=== PATIENT | male | born 1950 | race Caucasian/White ===

== ENCOUNTER → 2020-02-28 | Outpatient (CLI) | payer MEDICARE, OTHER ==
--- NOTE | 2020-02-28 11:31 | Diagnostic Imaging Report ---
INDICATION: Low back pain extending to the left leg. TIME OF EXAM: 10:51 AM FINDINGS: Curvature of the lumbar spine is normal. There is minimal retrolisthesis L3 on L4 and L4 on L5. Vertebral body heights are maintained. No acute compression fracture is identified. There is slight anterior wedging of the L1 vertebral body. There is degenerative disc disease at all levels with variable disc space narrowing and marginal spurring. There is multilevel facet arthropathy. There are calcifications in the abdominal aorta. IMPRESSION: Significant lumbar spondylosis and listhesis. No acute compression fracture is identified. Dictated by: Dictated on workstation # [id number]
== END ==
LOC: RAD FS 10:36
PROVIDERS: ATTEND Family Medicine
DX: M47.816 Spondylosis without myelopathy or radiculopathy, lumbar region (principal); M43.16 Spondylolisthesis, lumbar region
CPT/HCPCS: 72100

== ENCOUNTER → 2022-04-06 | Outpatient (CLI) | payer MEDICARE, OTHER ==
[~2022-04-06] MED LIST: CATHETER FLUSH 10 ML SYR IV PRN; HOLD METFORMIN - RECEIVED CONTRAST 20 ML VIAL IV SCH; IOHEXOL 350 MG/ML 100 ML (OMNIPAQUE 350) VIAL IV ONE; NS 100 ML (IVPB) BAG IV ONE
[2022-04-06 11:06] LABS: POTASSIUM 4.2 MMOL/L (3.6-5.0)
[2022-04-06 11:07] LABS: CALCIUM 9.6 MG/DL (8.5-10.1); CREATININE SERUM 0.69 MG/DL (0.60-1.30)
--- NOTE | 2022-04-06 19:31 | Diagnostic Imaging Report ---
CLINICAL INDICATIONS: Patient with mass in the left neck. Abnormal ultrasound. Patient has history of smoking. EXAM: Axial CT scan of the neck soft tissue performed with 75 mL of Omnipaque 350 IV contrast. Sagittal and coronal reformatted images are created. Auto Exposure Controls were utilized during the CT exam to meet ALARA standards for radiation dose reduction. COMPARISON: None. FINDINGS: There is a heterogeneous peripherally enhancing soft tissue mass seen in the left level 2 region which measures 3.7 cm x 3.2 cm x 4.9 cm (AP x Trans x CC) . There is central heterogeneous low signal seen involving this lesion and this lesion is multilobulated. This mass is lateral to the carotid space and markedly narrows the left internal jugular vein. There is continued contrast within the left internal jugular vein. This is concerning for a pathologic lymph node. There is fat stranding adjacent to this lymph node. There is no other neck soft tissue mass seen. There is no other lymphadenopathy. Salivary glands are unremarkable. There is prominent lobulated soft tissue involving the base of the tongue which measures grossly 1.4 cm. There is slight medial convex bulging of the left posterior hypopharyngeal wall is noted which may be related to mass effect from the left neck mass. Otherwise, the nasopharynx, hypopharynx, laryngeal soft tissue structures shows no other significant abnormality. There is an 8 mm low-density nodule involving left thyroid lobe. The visualized portions of the oral cavity, tongue, sublingual and submandibular regions are unremarkable. Dentures are noted. Limited visualization of the intracranial structures are unremarkable. Paraseptal emphysematous changes are noted with suspected scarring in the periphery. There are degenerative spurs involving the cervical spine. IMPRESSION: 1: There is a 4.9 cm mass in the left level 2 neck region with central low-density. This is most concerning for a pathologic lymph node. Metastatic lymph node is a concern. An infected lymph node or abscess is suspected to be less likely. 2: There is lobulated masslike prominence involving the posterior tongue base. Direct visualization is suggested. Unknown if this represents a mass or prominent posterior lingual soft tissue. 3: There is no other concern for lymphadenopathy. 4: There is an 8 mm left thyroid nodule. Nonemergent thyroid ultrasound would better evaluate. Dictated by: Dictated on workstation # [id number]
== END ==
LOC: RAD FS 10:14
PROVIDERS: ATTEND Allergy & Immunology
DX: E04.1 Nontoxic single thyroid nodule (principal); Z87.891 Personal history of nicotine dependence
CPT/HCPCS: 36415; 70491; 80048; Q9967

== ENCOUNTER 2022-04-29 05:40 | Outpatient (CLI) | payer MEDICARE ==
[~2022-04-29] VITALS: Ht 177.8 cm; Wt 89.5 kg
[2022-04-29] MEDS ORDERED: MULT-1136 PO (10:58)
[2022-04-29] MEDS ORDERED: TERA5CAP10 PO (10:58)
[2022-04-29] MEDS ORDERED: CHOL20003 PO (10:58)
[2022-04-29] MEDS ORDERED: ROSU20TA32 PO (10:58)
== END 2022-04-29 12:32 | disposition home or self-care (01) ==
LOC: PREOP 05:40
PROVIDERS: ATTEND Otolaryngology Otolaryngology/Facial Plastic Surgery
DX: Z01.818 Encounter for other preprocedural examination (principal)

== ENCOUNTER 2022-05-06 06:08 | Day surgery (SDC) | payer MEDICARE ==
[~2022-05-06] VITALS: Ht 177.8 cm; Wt 89.5 kg
[2022-05-06] VITALS (10 sets, daily range): BP systolic 105–139; BP diastolic 48–84
[~2022-05-06 06:08] MED LIST changes: -CATHETER FLUSH 10 ML SYR IV PRN; +CHOL20003 PO; -HOLD METFORMIN - RECEIVED CONTRAST 20 ML VIAL IV SCH; -IOHEXOL 350 MG/ML 100 ML (OMNIPAQUE 350) VIAL IV ONE; +MULT-1136 PO; -NS 100 ML (IVPB) BAG IV ONE; +ROSU20TA32 PO; +TERA5CAP10 PO
[2022-05-06] MEDS: LACTATED RINGERS 1,000 ML IV PRN ×2 (06:44→08:57)
[2022-05-06 06:54] LABS: BASOPHILS # (AUTO) 0.1 10^3/uL (0.0-0.1); BASOPHILS % (AUTO) 1 % (0-10); EOSINOPHILS # (AUTO) 0.3 10^3/uL (0.0-0.3); EOSINOPHILS % (AUTO) 3 % (0-10); HEMATOCRIT 45 % (40-54); HEMOGLOBIN 14.9 g/dL (13.3-17.7); LYMPHOCYTES # (AUTO) 1.9 10^3/uL (1.0-4.0); LYMPHOCYTES % (AUTO) 21 % (12-44); MEAN CORPUSCULAR HEMOGLOBIN 30 pg (25-34); MEAN CORPUSCULAR HGB CONC 33 g/dL (32-36); MEAN CORPUSCULAR VOLUME 91 fL (80-99); MEAN PLATELET VOLUME 9.4 fL (9.0-12.2); MONOCYTES # (AUTO) 0.8 10^3/uL (0.0-1.0); MONOCYTES % (AUTO) 9 % (0-12); NEUTROPHILS # (AUTO) 5.6 10^3/uL (1.8-7.8); NEUTROPHILS % (AUTO) 65 % (42-75); PLATELET COUNT 296 10^3/uL (130-400); WHITE BLOOD COUNT 8.7 10^3/uL (4.3-11.0)
[2022-05-06 07:12] LABS: POTASSIUM 4.1 MMOL/L (3.6-5.0)
[2022-05-06] MEDS ORDERED: ONDANSETRON 4 MG/2 ML (SDV) Z0FRAN ONE (07:12)
[2022-05-06] MEDS ORDERED: fentaNYL INJ 100 MCG/2 ML AMP ONE (07:12)
[2022-05-06] MEDS ORDERED: MIDAZOLAM 2 MG/2 ML (VERSED) VIAL ONE (07:12)
[2022-05-06] MEDS ORDERED: SEVOFLURANE (ULTANE) 15 ML INHAL SOLN ONE (07:12)
[2022-05-06] MEDS ORDERED: ROCURONIUM 10 MG/ML 5 ML SYRINGE IV ONE (07:12)
[2022-05-06] MEDS ORDERED: proPOfol 200 MG/20 ML (DIPRIVAN) VIAL IV ONE (07:12)
[2022-05-06] MEDS ORDERED: LIDOCAINE PF 2% 5 ML (XYLOCAINE) VIAL ONE (07:12)
[2022-05-06 07:13] LABS: CALCIUM 9.4 MG/DL (8.5-10.1)
--- NOTE | 2022-05-06 07:13 | Progress Note-Pre Operative ---
Pre-Operative Progress Note Date of Available H&P: May 06, 2022 Date H&P Reviewed: May 06, 2022 Time H&P Reviewed: 06:30 History & Physical: H&P Reviewed, Patient Examed, No changes noted Changes from last HP none Pre-Operative Diagnosis: Left Base of Tongue mass with neck mass SHAQ GERARD MD May 06, 2022 07:13
[2022-05-06 07:18] LABS: CREATININE SERUM 0.71 MG/DL (0.60-1.30)
[2022-05-06] MEDS ORDERED: LIDOCAINE/EPI 2% 1:200,00 (XYLOCAINE) 20 ML VIAL ONE (07:34)
--- NOTE | 2022-05-06 08:11 | Progress Note-Post Operative ---
Post-Operative Progess Note Surgeon (s)/Shotgun Shell Assembly Machine Operator (s) Surgeon SHAQ GERARD MD Shotgun Shell Assembly Machine Operator n/a Pre-Operative Diagnosis Left Base of Tongue mass with neck mass Post-Operative Diagnosis same Post-Op Procedure Note Date of Procedure: May 06, 2022 Name of Procedure Performed: Direct Laryngoscopy with Mulktiple Biopsies of Left BAse of Tongue Description & Findings Description and Findings: n/a Anesthesia Type get Estimated Blood Loss minimal Packing none. Specimen(s) collected/removed left base of tongue biopsies to pathology SHAQ GERARD MD May 06, 2022 08:11
[2022-05-06] MEDS ORDERED: PHENYLEPHRINE 100 MCG/ML 10 ML (ANESTHESIA) SYR ONE (08:12)
[2022-05-06] MEDS ORDERED: HYDROcodone/APAP 5 MG/325 MG (LORTAB) TAB PO PRN (08:15)
[2022-05-06] MEDS ORDERED: PROMETHAZINE INJ 25 MG/ML (PHENERGAN) AMP IV PRN (08:15)
[2022-05-06] MEDS ORDERED: GLYCOPYRROLATE 0.2 MG/ML (ROBINUL) 2 ML VIAL ONE (08:41)
[2022-05-06] MEDS ORDERED: NEOSTIGMINE (BLOXIVERZ ) 1 MG/1ML 10 ML VIAL ONE (08:42)
[2022-05-06] MEDS ORDERED: HYDROmorphone 2 MG/ML VIAL (DILAUDID) IV ONE (09:00)
[2022-05-06] MEDS ORDERED: ONDANSETRON 4 MG/2 ML (SDV) Z0FRAN IVP PRN (09:00)
--- NOTE | 2022-05-06 09:41 | Anesthesia-General Post-Op ---
General Patient Condition Mental Status/LOC: Same as Preop Cardiovascular: Satisfactory Nausea/Vomiting: Absent Respiratory: Satisfactory Pain: Controlled Complications: Absent Post Op Complications Complications None Follow Up Care/Instructions Patient Instructions None needed. Anesthesia/Patient Condition Patient Condition Patient is doing well, no complaints, stable vital signs, no apparent adverse anesthesia problems. No complications reported per nursing. D/C home per [facility] Criteria: Yes HARSH MEI CRNA May 06, 2022 09:41
== END 2022-05-06 10:45 ==
LOC: SDC 06:08
PROVIDERS: ATTEND Otolaryngology Otolaryngology/Facial Plastic Surgery
DX: C02.9 Malignant neoplasm of tongue, unspecified (principal); F17.210 Nicotine dependence, cigarettes, uncomplicated
CPT/HCPCS: 36415; 80048; 85025; 87081; 93005

== ENCOUNTER → 2022-05-17 | Outpatient (CLI) | payer MEDICARE ==
--- NOTE | 2022-05-18 14:04 | Diagnostic Imaging Report ---
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 TECHNIQUE: The serum blood glucose level at the time of injection was 133 mg/dL. The patient was administered 14.9 mCi of F-18 FDG intravenously in the right antecubital location and PET imaging was performed from the top of the skull to the mid thighs. A noncontrast CT was also performed for attenuation correction and anatomic correlation. COMPARISON: No prior PET/CT studies are available for comparison. Correlation is made with the recent CT soft tissue neck study from 04/06/2022. FINDINGS: There is symmetric activity throughout the brain. There is a large soft tissue mass in the left neck measuring 4.7 cm corresponding to the previously noted left neck lymph node. This demonstrates an SUV max of approximately 15. This abuts the left posterolateral lung base obscuring the known left base of tongue mass. No other hypermetabolic lymph nodes in the neck are identified. There is low-level activity within an irregular density in the left upper chest adjacent to the major fissure with an SUV max of 2.0. No hypermetabolic mediastinal or hilar lymph nodes are identified. Physiologic activity throughout the GI and tracts of the abdomen and pelvis is noted. No suspicious hypermetabolic foci in the abdomen or pelvis are identified. IMPRESSION: Hypermetabolic left neck mass, consistent with a metastatic cervical lymph node. This is inseparable from the left base of tongue, likely obscuring the known left base of tongue mass. No other suspicious areas of hypermetabolism are identified. Dictated by: Dictated on workstation # [id number]
== END ==
LOC: RAD 10:28
PROVIDERS: ATTEND Nurse Practitioner
DX: C01 Malignant neoplasm of base of tongue (principal); C79.89 Secondary malignant neoplasm of other specified sites
CPT/HCPCS: 78815; A9552

== ENCOUNTER 2022-05-27 07:57 | Outpatient (CLI) | payer MEDICARE ==
[~2022-05-27] VITALS: Ht 177.8 cm; Wt 89.4 kg
[2022-05-27] MEDS ORDERED: ATOR10TA PO (09:31)
[2022-05-27] MEDS ORDERED: NAPR220T66 PO (09:31)
[2022-05-27] MEDS ORDERED: ACHD5005 PO (09:31)
[2022-05-28] MEDS ORDERED: OXYC1TAB11 PO ×2 (11:20→11:22)
== END 2022-05-27 10:04 | disposition home or self-care (01) ==
LOC: PREOP 07:57
PROVIDERS: ATTEND Surgery
DX: Z01.818 Encounter for other preprocedural examination (principal)

== ENCOUNTER 2022-05-28 10:16 | Day surgery (SDC) | payer MEDICARE ==
[~2022-05-28] VITALS: Ht 177.8 cm; Wt 89.4 kg
[2022-05-28] VITALS (7 sets, daily range): BP systolic 114–136; BP diastolic 64–72
[~2022-05-28 10:16] MED LIST changes: +ACHD5005 PO; +ATOR10TA PO; +NAPR220T66 PO
[2022-05-28] MEDS ORDERED: LACTATED RINGERS 1,000 ML IV PRN (11:15)
[2022-05-28] MEDS ORDERED: ceFAZolin INJECTION 2,000 MG in NS (IVPB) 50 ML IV ONE (11:15)
[2022-05-28] MEDS ORDERED: OXYC1TAB11 PO ×2 (11:20→11:22)
--- NOTE | 2022-05-28 11:47 | Progress Note-Pre Operative ---
Pre-Operative Progress Note Date of Available H&P: May 26, 2022 Date H&P Reviewed: May 28, 2022 Time H&P Reviewed: 11:46 History & Physical: H&P Reviewed, Patient Examed, No changes noted Pre-Operative Diagnosis: sqaumous cell carcinoma tongue NEENA COLES DO May 28, 2022 11:47
[2022-05-28] MEDS ORDERED: HEParin (CENTRAL IV FLUSH) 500 UNIT/5 ML SYR ONE (11:55)
[2022-05-28] MEDS ORDERED: 0.9% SODIUM CHLORIDE PF INJ 20 ML VIAL ONE (11:55)
[2022-05-28] MEDS ORDERED: LIDOCAINE/EPI 1%-1:100,000 (XYLOCAINE) 10 ML ONE (11:55)
[2022-05-28] MEDS ORDERED: PROPOFOL INJECTION 50 ML IV ONE (12:09)
[2022-05-28] MEDS ORDERED: fentaNYL INJ 100 MCG/2 ML AMP ONE (12:09)
[2022-05-28] MEDS ORDERED: MIDAZOLAM 2 MG/2 ML (VERSED) VIAL ONE (12:10)
--- NOTE | 2022-05-28 13:08 | Discharge Inst-Simple/Standard ---
Discharge Inst-Standard Patient Instructions/Follow Up Plan of Care/Instructions/FU: 2 weeks Ritchie Activity as Tolerated: No Discharge Diet: Liquid Diet (today and advance diet tomorrow.) Other Inst to Patient Follow up Appt: Make appointment for 2 week. Instructions: No lifting greater than 10 pounds. No strenuous activity. May shower in 24 hours, no tub bath or soaking. Use incentive spirometer at home as directed. No Smoking Skin/Wound Care: You have special glue over your incision that will fall off on it's own. Ice pack on 15 min off 30 min and repeat for first 48 hours. This reduces swelling and discomfort. Starting tomorrow, flush you gastrostomy tube with water daily. Starting this evening, rotate the bolster of the gastrostomy tube (flower appearing part touching the skin) to rotate the pressure to different spot on the skin twice a day. Symptoms to Report: Appetite Changes, Extremity Discoloration, Numbness/Tingling, Swelling Increa sed, Bleeding Excessive, Eyesight Changes, Pain Increased, Urine Color Change, Constipation(Persistent), Fever over 101 degree F, Pain/Pressure in chest, Urinating Difficulty, Cough Up/Vomit Blood, Heart Beat Irreg/Pounding, Pain/Pressure in jaw, Vaginal Bleeding Increase, Cramps in feet or legs, Lightheadedness, Pain/Pressure in shoulder, Diarrhea(Persistent), Memory Changes Suddenly, Questions/Concerns, Weight gain consecutive days, Dizziness/Fainting, Nausea/Vomiting, Shortness of Breath, Weight gain over 2 pounds If questions or concerns contact your physician Or seek help at emergency department. NEENA COLES DO May 28, 2022 13:08
--- NOTE | 2022-05-28 13:09 | Anesthesia-General Post-Op ---
MAC Patient Condition Mental Status/LOC: Same as Preop Cardiovascular: Satisfactory Nausea/Vomiting: Absent Respiratory: Satisfactory Pain: Controlled Complications: Absent Post Op Complications Complications None Follow Up Care/Instructions Patient Instructions None needed. Anesthesiology Discharge Order Discharge Order Patient is doing well, no complaints, stable vital signs, no apparent adverse anesthesia problems. No complications reported per nursing. JASKARAN PATTEN CRNA May 28, 2022 13:09
[2022-05-28] MEDS ORDERED: morphine INJ 10 MG/ML 1ML (SYR OR VIAL) IVP ONE (13:15)
[2022-05-28] MEDS ORDERED: ONDANSETRON 4 MG/2 ML (SDV) Z0FRAN IVP PRN (13:15)
--- NOTE | 2022-05-28 14:05 | Diagnostic Imaging Report ---
Indication: Status post port placement. Time of Exam: 1:23 PM No prior studies are available for comparison. Heart size normal. Right chest wall port has tip overlying the SVC. There is no pneumothorax. The lungs are clear. There is a significant amount of pneumoperitoneum below the hemidiaphragms bilaterally. Reportedly, the patient underwent gastrostomy tube placement today, as well. IMPRESSION: 1. Port placement without evidence of pneumothorax. 2. Pneumoperitoneum, secondary to gastrostomy tube placement. Dictated by: Dictated on workstation # [id number]
--- NOTE | 2022-05-28 16:09 | Diagnostic Imaging Report ---
INDICATION: Fluoroscopic guidance. Port-A-Cath placement. COMPARISON: None. TOTAL FLUOROSCOPY TIME: 18 seconds. TOTAL IMAGES OBTAINED: 1. FINDINGS: Fluoroscopic guidance was provided during placement of Port-A-Cath. Single image provided shows right internal jugular venous approach with central tip projecting over the SVC. Evaluation for pneumothorax is suboptimal given fluoroscopic modality. Please note, interpreting radiologist was not present during the procedure. IMPRESSION: Fluoroscopic guidance provided during Port-A-Cath placement, as above. Dictated by: Dictated on workstation # [id number]
--- NOTE | 2022-05-28 19:03 | OPERATIVE REPORT ---
DATE OF SERVICE: 05/28/2022 PREOPERATIVE DIAGNOSIS: Malnutrition. POSTOPERATIVE DIAGNOSIS: Malnutrition. PROCEDURE PERFORMED: PEG tube placement. SURGEON: Quang Andujar DO RADIOLOGY NURSE: Curly Dugan DO. ANESTHESIA: IV sedation by DATA STORAGE SPECIALIST. SPECIMENS: None. BLOOD LOSS: Scant. FLUIDS: Per anesthesia. INDICATION FOR PROCEDURE: The patient is a 71-year-old male with lung cancer and need for PEG tube placement. FINDINGS: The patient had a PEG tube placed without difficulty. PROCEDURE NOTE: After informed consent was obtained, the patient was brought to the operating room. He already had a port placed. Dr. Dugan started with the EGD. I prepped and draped his abdomen, then able to push on the abdomen, see the light from the inside and could then see where I was pushing from the inside of the stomach, I made a wheal with local lidocaine and made a stab incision with #11 blade and then advanced the needle into the stomach. It went in and then removed the needle and through the catheter, placed the guidewire. Dr. Dugan grasped the guidewire and pulled this out. We then attached the PEG tube. I then pulled the guidewire back and he followed the PEG tube down into the stomach held up tight about 2 cm, then placed the 2 x 2 drain sponge and then the bolster as well as the locking mechanism and then placed the distal portion of the PEG tube onto the catheter, laid in nicely. Area was cleaned and dried, dressing placed. The patient tolerated the procedure. He was then transferred to recovery room in stable condition. Sponge, instrument and needle count correct at the end of the case. Job ID: [id number] DocumentID: [id number] Dictated Date: 05/28/2022 13:01:38 Due Diligence Coordinator Date: 05/28/2022 19:02:12 Dictated By: QUANG ANDUJAR DO [facility]
--- NOTE | 2022-05-28 21:06 | OPERATIVE REPORT ---
DATE OF SERVICE: 05/28/2022 PREOPERATIVE DIAGNOSIS: Squamous cell carcinoma of the tongue. POSTOPERATIVE DIAGNOSIS: Squamous cell carcinoma of the tongue. PROCEDURE: Ultrasound-guided port placement, right internal jugular vein and esophagogastroduodenoscopy for gastrostomy tube placement. SURGEON: Curly Dugan DO ANESTHESIA: MAC with local. MATERIAL HANDLING TECHNICIAN: Dr. Andujar to place a gastrostomy tube. Please see his dictation. ESTIMATED BLOOD LOSS: Minimal. COMPLICATIONS: None. INDICATIONS: The patient is a 71-year-old male with squamous cell carcinoma of the tongue. He understands risks and benefits of procedures and wished to proceed. Consent was signed in the chart. DESCRIPTION OF PROCEDURE: The patient was taken to the operating suite, prepped and draped in sterile fashion. Timeout was performed. Using ultrasound, the right internal jugular vein was accessed with micro access needle. Dark nonpulsatile blood was withdrawn. The micro access wire inserted through the needle and air was removed. Fluoroscopy assured proper placement. The dilator was advanced over the wire after a #11 blade scalpel was used to make a small skin incision at the insertion point. The wire and dilator were removed. The normal guidewire was inserted through the sheath and the sheath was then removed. Fluoroscopy assured proper placement. Pocket was then created on the right chest for port placement. A 15 blade scalpel was used to make a small skin incision after local anesthetic was infiltrated. A pocket was created with blunt and cautery dissection. The dilator sheath was then advanced over the wire and the dilator and wire were removed. The Gro[place] catheter was inserted through the sheath and then the sheath was then removed. The catheter was then tunneled from the insertion point to the pocket created on the right chest. It was then cut to length and secured to the port placed and then accessed without difficulty. It deacon blood and flushed without difficulty, first with saline and then with heparin. The subcutaneous tissues were then reapproximated using 3-0 Vicryl. Fluoroscopy assured proper placement. Skin was then closed with Skin Affix after the area was washed and dried. The patient tolerated the procedure well. Scope was inserted through the mouth, down the esophagus, stomach and into the duodenum without difficulty. No polyps, masses or ulcerations within the duodenum. The first portion of the duodenum did have little bit of erythematous changes. Scope was then slowly retracted back into the stomach where it was further insufflated. After the Angiocath needle was inserted, a snare was used to grasp the catheter. The guidewire was inserted, which was snared and brought out through the mouth, the gastrostomy tube was attached to the guidewire, which was then pulled out and the scope was then reinserted into the mouth, down the esophagus into the stomach demonstrating the gastrostomy tube and inner bolster in good position. Scope was then slowly withdrawn until completely removed noting no other pathology. The patient tolerated the procedure well without any complications, taken to recovery room in stable condition. Chest x-ray pending. Job ID: [id number] DocumentID: [id number] Dictated Date: 05/28/2022 13:18:08 Wheel Lacer And Truer Date: 05/28/2022 21:05:19 Dictated By: DO ELOISA MATTA
== END 2022-05-28 15:03 | disposition home or self-care (01) ==
LOC: SDC 10:16
PROVIDERS: ATTEND Surgery
DX: C02.9 Malignant neoplasm of tongue, unspecified (principal); E46 Unspecified protein-calorie malnutrition; F17.210 Nicotine dependence, cigarettes, uncomplicated
CPT/HCPCS: 36561; 43246; 71045; 76000; 87081; C1788

== ENCOUNTER → 2022-06-14 | Outpatient (RCR) | payer MEDICARE ==
[~2022-06-14] MED LIST changes: +OXYC1TAB11 PO
== END | disposition home or self-care (01) ==
LOC: ONC 05-19 09:55
PROVIDERS: ATTEND Radiology Radiation Oncology
DX: Z51.0 Encounter for antineoplastic radiation therapy (principal); C01 Malignant neoplasm of base of tongue; E78.00 Pure hypercholesterolemia, unspecified
CPT/HCPCS: 77300; 77301; 77334; 77336; 77338; 77386; 77470; 99205

== ENCOUNTER → 2022-07-14 | Outpatient (RCR) | payer MEDICARE | END | disposition home or self-care (01) | LOC: ONC 06-15 10:36 | PROVIDERS: ATTEND Radiology Radiation Oncology | DX: Z51.0 Encounter for antineoplastic radiation therapy (principal); C01 Malignant neoplasm of base of tongue; E78.00 Pure hypercholesterolemia, unspecified | CPT/HCPCS: 77386; G0463; 77336 ==

== ENCOUNTER 2022-07-21 10:33 | Outpatient (RCR) | payer MEDICARE | END 2022-08-14 | disposition home or self-care (01) | LOC: ONC 10:33 | PROVIDERS: ATTEND Radiology Radiation Oncology | DX: Z51.0 Encounter for antineoplastic radiation therapy (principal); C02.9 Malignant neoplasm of tongue, unspecified | CPT/HCPCS: 77336; 77386 ==

== ENCOUNTER 2022-09-02 11:19 | Outpatient (RCR) | payer MEDICARE | END 2022-09-14 | disposition home or self-care (01) | LOC: ONC 11:19 | PROVIDERS: ATTEND Radiology Radiation Oncology | DX: C02.9 Malignant neoplasm of tongue, unspecified (principal) | CPT/HCPCS: 99213 ==

== ENCOUNTER 2022-11-09 16:31 | Emergency (ER) | payer MEDICARE ==
--- NOTE | 2022-11-09 16:45 | ED Fall/Injury ---
General Chief Complaint: Trauma-Non Activation Stated Complaint: FELL CRACKED HEAD Source: patient, family (son) Exam Limitations: no limitations History of Present Illness Date Seen by Provider: Nov 09, 2022 Time Seen by Provider: 16:35 Initial Comments 72-year-old male presents to the emergency department today for a closed head injury. He fell last night as he had the urge to use the restroom, got up and tripped in the hallway. He states he simply tripped on his slippers. He fell hitting his head on the wooden floor. He denies loss of conscious. No nausea or vomiting. He was fine throughout the day today has been ambulatory without any weakness of his upper or lower extremities bilaterally. No blurred or double vision. His son came over and saw the goose egg on his head and decided he needed to get checked out. He is not on any blood thinning medications. All other systems reviewed and negative except documented per HPI. Voice recognition software was used to help create this chart Allergies and Home Medications Allergies Coded Allergies: No Known Drug Allergies (Unverified , 05/27/22) Patient Home Medication List Home Medication List Reviewed: Yes Atorvastatin Calcium (Lipitor) 10 Mg Tablet, 10 MG PO HS, (Reported) Entered as Reported by: MARBELLA MAY on 05/27/22 09 Cholecalciferol (Vitamin D3) (Vitamin D3) 50 Mcg (2000 Unit) Capsule, 50 MCG PO DAILY, (Reported) Entered as Reported by: JOSÉ LUIS BOLTON on 04/29/22 105 Multivitamin (Multivitamin) 1 Each Tablet, 1 EACH PO DAILY, (Reported) Entered as Reported by: JOSÉ LUIS BOLTON on 04/29/22 1058 Naproxen Sodium (Aleve) 220 Mg Tablet, 220 MG PO UD, (Reported) Entered as Reported by: MARBELLA MAY on 05/27/22 0931 Oxycodone HCl/Acetaminophen (Oxycodone-Acetaminophen 5-325) 5 Mg-325 Mg Tablet, 1 EACH PO Q4H PRN for PAIN-SEVERE, (Reported) Entered as Reported by: Stephanie Adams on 05/28/22 1122 Terazosin HCl (Terazosin HCl) 5 Mg Capsule, 5 MG PO DAILY, (Reported) Entered as Reported by: JOSÉ LUIS BOLTON on 04/29/22 1058 Review of Systems Review of Systems Constitutional: see HPI Past Bjogsmc-Qhbprn-Syzcas Hx Patient Social History Tobacco Use?: No Use of E-Cig and/or Vaping dev: No Substance use?: No Immunizations Up To Date First/Initial COVID19 Vaccinat: 03/07/2021 Second COVID19 Vaccination Raul: 03/28/2021 Third COVID19 Vaccination Date: 03/07/2021 Seasonal Allergies Seasonal Allergies: No Past Medical History Surgeries: Yes (BACK X2; BILAT SHOULDERS ROTATOR REPARI) Orthopedic, Tonsillectomy Respiratory: No Currently Using CPAP: No Currently Using BIPAP: No Cardiac: Yes High Cholesterol Neurological: No Reproductive Disorders: No Genitourinary: Yes Benign Prostatic Hyperpl Gastrointestinal: No Musculoskeletal: Yes Arthritis Endocrine: No HEENT: Yes (TONGUE CANCER SCC) Cancer: Yes (TONGUE) What Type of Treatment Did You: Surgical Intervention Psychosocial: Yes Sleep Difficulties Integumentary: No Blood Disorders: No Family Medical History Reviewed Nursing Family Hx No Pertinent Family Hx Physical Exam Vital Signs Capillary Refill : Height, Weight, BMI Height: '" Weight: lbs. oz. kg; 28.27 BMI Method: General Appearance: WD/WN, no apparent distress, other (Patient has a cephalhematoma left anterior forehead with an overlying scab.) HEENT: PERRL/EOMI, normal ENT inspection, TMs normal, pharynx normal, other (No pain with extraocular movements. No evidence for entrapment. No hemotympanum bilaterally.) Neck: non-tender, supple, normal inspection Cardiovascular: regular rate, rhythm, no murmur Respiratory: chest non-tender, lungs clear, normal breath sounds, no respiratory distress, no accessory muscle use Gastrointestinal: normal bowel sounds, non tender, soft, no organomegaly Back: normal inspection, no vertebral tenderness Extremities: normal range of motion, normal inspection, no pedal edema, no calf tenderness, normal capillary refill Neurologic/Psychiatric: fur mixer II-XII nml as tested, no motor/sensory deficits, alert, normal mood/affect, oriented x 3 Skin: normal color, warm/dry, other (Abrasion left anterior forehead as documented elsewhere) Departure Communication (Admissions) Patient is hemodynamically stable with a GCS of 15. No focal exam findings. No evidence for entrapment of his eyes on exam. No evidence for intracranial injury. He does meet any criteria for CT scanning and the incident happened overnight, he has been well ambulatory with a GCS of 15 all day. No indication for imaging at this time. He is on blood thinners. He is discharged home in stable condition with supportive care. Impression Primary Impression: Fall Qualified Codes: W19.XXXA - Unspecified fall, initial encounter Additional Impression: Cephalohematoma Disposition: HOME, SELF-CARE Condition: Stable Departure-Patient Inst. Referrals: SELF,KO BRADLEY (PCP/Family) Primary Care Physician Patient Instructions: Minor Head Injury (DC) Add. Discharge Instructions: Use ibuprofen and Tylenol as needed for pain. Return to the emergency department for any vision changes, weakness in your legs or arms or if your symptoms change in any way concerning to you. Follow-up with your primary doctor for any nonemergent needs All discharge instructions reviewed with patient and/or family. Voiced understanding. SALIMA ALEGRIA DO Nov 09, 2022 16:45
[2022-11-09 16:49] VITALS: BP 122/67
== END 2022-11-09 16:49 | disposition home or self-care (01) ==
LOC: EDUNIT# 16:31 → ER FS 16:33
DX: S00.83XA Contusion of other part of head, initial encounter (principal); W01.198A Fall on same level from slipping, tripping and stumbling with subsequent striking against other object, initial encounter
CPT/HCPCS: 99282

== ENCOUNTER 2022-12-05 15:47 | Observation (INO) | payer MEDICARE ==
[~2022-12-05] VITALS: Ht 177 cm; Wt 80.2 kg
--- NOTE | 2022-12-05 16:01 | ED Fall/Injury ---
General Chief Complaint: General Problems/Pain Stated Complaint: FALL History of Present Illness Date Seen by Provider: Dec 05, 2022 Time Seen by Provider: 15:52 Initial Comments 71-year-old male with PMH of tongue cancer/active smoker, is here with co mplaints of recurrent falls. Patient had 3 falls this past week, with the last one being today at 2 AM in the morning when he was going to the bathroom. Patient states that he loses his balance and just falls. Patient has resulting right hip pain and right elbow pain with a minor skin tear. Patient states that he was not dizzy at the time of the fall, and did not have LOC. Denies chest pain, palpitations, shortness of breath, blurry vision, hearing disturbances, headaches, neck pain, LOC, vertigo. Patient is on a feeding tube. Patient is a poor historian. Allergies and Home Medications Allergies Coded Allergies: No Known Drug Allergies (Unverified , 05/27/22) Patient Home Medication List Home Medication List Reviewed: Yes Atorvastatin Calcium (Lipitor) 10 Mg Tablet, 10 MG PO HS, (Reported) Entered as Reported by: MARBELLA MAY on 05/27/22930 Cholecalciferol (Vitamin D3) (Vitamin D3) 50 Mcg (2000 Unit) Capsule, 50 MCG PO DAILY, (Reported) Entered as Reported by: JOSÉ LUIS BOLTON on 04/29/22 105 Multivitamin (Multivitamin) 1 Each Tablet, 1 EACH PO DAILY, (Reported) Entered as Reported by: JOSÉ LUIS BOLTON on 04/29/22 105 Naproxen Sodium (Aleve) 220 Mg Tablet, 220 MG PO UD, (Reported) Entered as Reported by: MARBELLA MAY on 05/27/22930 Oxycodone HCl/Acetaminophen (Oxycodone-Acetaminophen 5-325) 5 Mg-325 Mg Tablet, 1 EACH PO Q4H PRN for PAIN-SEVERE, (Reported) Entered as Reported by: Stephanie Adams on 05/28/22 1122 Terazosin HCl (Terazosin HCl) 5 Mg Capsule, 5 MG PO DAILY, (Reported) Entered as Reported by: JOSÉ LUIS BOLTON on 04/29/22 1058 Review of Systems Review of Systems Constitutional: no symptoms reported Eyes: No Symptoms Reported Ears, Nose, Mouth, Throat: no symptoms reported Respiratory: no symptoms reported Cardiovascular: no symptoms reported Gastrointestinal: no symptoms reported Genitourinary: no symptoms reported Musculoskeletal: see HPI, joint pain, muscle pain Skin: see HPI Psychiatric/Neurological: See HPI, Other (Falls) Past Pxwcqpv-Pseorx-Whgygd Hx Patient Social History Tobacco Use?: Yes Tobacco type used: Cigarettes Smoking Status: Current Everyday Smoker Use of E-Cig and/or Vaping dev: No Substance use?: No Alcohol Use?: No Pt feels they are or have been: Unable to obtain Immunizations Up To Date First/Initial COVID19 Vaccinat: 03/07/2021 Second COVID19 Vaccination Raul: 03/28/2021 Third COVID19 Vaccination Date: 03/07/2021 Seasonal Allergies Seasonal Allergies: No Past Medical History Surgery/Hospitalization HX: Oral cancer; 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 Surgeries: Yes (BACK X2; BILAT SHOULDERS ROTATOR REPARI) Orthopedic, Tonsillectomy Respiratory: No Currently Using CPAP: No Currently Using BIPAP: No Cardiac: Yes High Cholesterol Neurological: No Reproductive Disorders: No Genitourinary: Yes Benign Prostatic Hyperpl Gastrointestinal: No Musculoskeletal: Yes Arthritis Endocrine: No HEENT: Yes (TONGUE CANCER SCC) Cancer: Yes (TONGUE) What Type of Treatment Did You: Surgical Intervention Psychosocial: Yes Sleep Difficulties Integumentary: No Blood Disorders: No Family Medical History No Pertinent Family Hx Physical Exam Vital Signs Vital Signs - First Documented 12/05/22 15:59 Temp 36.1 Pulse 99 Resp 16 B/P (MAP) 114/57 (76) Pulse Ox 97 O2 Delivery Room Air Capillary Refill : Height, Weight, BMI Height: '" Weight: lbs. oz. kg; 28.27 BMI Method: General Appearance: WD/WN, no apparent distress HEENT: PERRL/EOMI, normal ENT inspection Neck: non-tender, full range of motion, supple, normal inspection Cardiovascular: regular rate, rhythm, no edema Respiratory: chest non-tender, lungs clear, normal breath sounds Gastrointestinal: normal bowel sounds, non tender, soft Back: normal inspection, no CVA tenderness Extremities: normal range of motion, pelvis stable, swelling (Of right elbow, mild. Redness over the elbow not warm to touch. ROM unrestricted. Superficial skin tear at elbow, 2 cm long no active bleeding, already starting to scab.), other (Right hip: Mild tenderness to touch, no bruising, ROM unrestricted. Patient has some difficulty in ambulation due to pain.) Neurologic/Psychiatric: second miller II-XII nml as tested, no motor/sensory deficits, alert, normal mood/affect, oriented x 3 Skin: normal color, other (Healing skin tear on the right forearm on the extensor surface, which is completely scabbed over. Residual from an old fall.) Antonio Coma Score Best Eye Response: (4) Open Spontaneously Best Verbal Response: (5) Oriented Best Motor Response: (6) Obeys Commands Antonio Total: 15 Progress/Results/Core Measures Results/Orders Lab Results Laboratory Tests Test 12/05/22 16:10 12/05/22 18:00 Range/Units White Blood Count 12.4 H 4.3-11.0 10^3/uL Red Blood Count 4.56 4.30-5.52 10^6/uL Hemoglobin 14.5 13.3-17.7 g/dL Hematocrit 42 40-54 % Mean Corpuscular Volume 92 80-99 fL Mean Corpuscular Hemoglobin 32 25-34 pg Mean Corpuscular Hemoglobin Concent 35 32-36 g/dL Red Cell Distribution Width 12.9 10.0-14.5 % Platelet Count 209 130-400 10^3/uL Mean Platelet Volume 9.4 9.0-12.2 fL Immature Granulocyte % (Auto) 1 % Neutrophils (%) (Auto) 89 H 42-75 % Lymphocytes (%) (Auto) 3 L 12-44 % Monocytes (%) (Auto) 7 0-12 % Eosinophils (%) (Auto) 0 0-10 % Basophils (%) (Auto) 0 0-10 % Neutrophils # (Auto) 11.0 H 1.8-7.8 10^3/uL Lymphocytes # (Auto) 0.3 L 1.0-4.0 10^3/uL Monocytes # (Auto) 0.9 0.0-1.0 10^3/uL Eosinophils # (Auto) 0.0 0.0-0.3 10^3/uL Basophils # (Auto) 0.0 0.0-0.1 10^3/uL Immature Granulocyte # (Auto) 0.2 H 0.0-0.1 10^3/uL Neutrophils % (Manual) 94 % Lymphocytes % (Manual) 2 % Monocytes % (Manual) 4 % Urine Color DARK YELLOW Urine Clarity CLEAR Urine pH 7.0 5-9 Urine Specific [place] 1.020 1.016-1.022 Urine Protein TRACE H NEGATIVE Urine Glucose (UA) NEGATIVE NEGATIVE Urine Ketones 2+ H NEGATIVE Urine Nitrite NEGATIVE NEGATIVE Urine Bilirubin NEGATIVE NEGATIVE Urine Urobilinogen 1.0 < = 1.0 MG/DL Urine Leukocyte Esterase NEGATIVE NEGATIVE Urine RBC (Auto) 3+ H NEGATIVE Urine RBC >100 H /HPF Urine WBC 5-10 H /HPF Urine Squamous Epithelial Cells 5-10 /HPF Urine Crystals NONE /LPF Urine Bacteria FEW H /HPF Urine Casts PRESENT /LPF Urine Granular Casts 2-5 H /LPF Urine Mucus LARGE H /LPF Urine Culture Indicated YES Sodium Level 123 *L 124 *L 135-145 MMOL/L Potassium Level 4.1 3.6-5.0 MMOL/L Chloride Level 86 L 98-107 MMOL/L Carbon Dioxide Level 23 21-32 MMOL/L Anion Gap 14 5-14 MMOL/L Blood Urea Nitrogen 18 7-18 MG/DL Creatinine 0.41 L 0.60-1.30 MG/DL Estimat Glomerular Filtration Rate 114 BUN/Creatinine Ratio 44 Glucose Level 109 H 70-105 MG/DL Calcium Level 9.3 8.5-10.1 MG/DL Corrected Calcium 9.5 8.5-10.1 MG/DL Magnesium Level 1.8 1.6-2.4 MG/DL Total Bilirubin 1.1 H 0.1-1.0 MG/DL Aspartate Amino Transf (AST/SGOT) 69 H 5-34 U/L Alanine Aminotransferase (ALT/SGPT) 24 0-55 U/L Alkaline Phosphatase 82 40-136 U/L Troponin I < 0.30 <0.30 NG/ML Total Protein 6.4 6.4-8.2 GM/DL Albumin 3.8 3.2-4.5 GM/DL My Orders Orders - JULES TAI MD Hip 2-3 View Right (12/05/22 16:01) Elbow 3 View Right (12/05/22 16:01) Ct Head Wo (12/05/22 16:02) Cbc With Automated Diff (12/05/22 16:02) Comprehensive Metabolic Panel (12/05/22 16:02) Magnesium (12/05/22 16:02) Ua Culture If Indicated (12/05/22 16:02) Troponin I Fs (12/05/22 16:02) Ekg Tracing (12/05/22 16:03) Manual Differential (12/05/22 16:10) Urine Culture (12/05/22 16:10) Ed Iv/Invasive Line Start (12/05/22 17:01) Ns Iv 1000 Ml (Sodium Chloride 0.9%) (12/05/22 17:15) Acetaminophen Tablet (Tylenol Tablet) (12/05/22 17:45) Sodium (12/05/22 17:55) Medications Given in ED Current Medications Medications Dose Ordered Sig/Manju Route Start Time Stop Time Status Last Admin Dose Admin Acetaminophen 1,000 mg ONCE ONCE PO 12/05/22 17:45 12/05/22 17:46 UNV 12/05/22 17:52 1,000 MG Vital Signs/I&O 12/05/22 15:59 Temp 36.1 Pulse 99 Resp 16 B/P (MAP) 114/57 (76) Pulse Ox 97 O2 Delivery Room Air Progress Progress Note : Progress Note 1. RECURRENT FALLS/ HYPONATREMI/ DEHYDRATION : - CT HEAD: no acute findings - XR RIGHT ELBOW/ RIGHT HIP: severe osteoarthritis of hip, and posterior subcutaneous edema of elbow - EKG:non-ischemic - Troponin: undetected - UA: positive ketones. No signs of infection - CBC: WBC is 12, but afebrile with normal vitals - CMP: s. Na is 123 - NS IVF bolus STAT - Tylenol 1000mg STAT -Discussed with hospitalist and will admit to observation for hypertension treatment and work-up, and medication re-assessment -Patient's oncologist is Dr. Cevallos and he has an appointment with him scheduled for Tuesday morning currently. Patient's PCP is Dr. LEUNG. Pt's ENT is Dr Huang. Diagnostic Imaging Diagonstic Imaging: Xray, CT Plain Films/CT/US/NM/MRI: elbow, hip, head Comments [facility], [place] NAME: CHIARA REYNA Jose Carlos FAITH REC#: [id number] PT STATUS: REG ER : 1950 PHYSICIAN: JULES TAI MD ADMIT DATE: 12/05/22/ER FS Signed Date of Exam:12/05/22 ELBOW 3 VIEW RIGHT INDICATION: Multiple recent falls over the past two weeks. Skin tear of left forearm. Pain. TECHNIQUE: 3 views of the right elbow. CORRELATION STUDY: None. FINDINGS: Small bone fragments adjacent to the lateral epicondyle and radial head may reflect a more remote injury. An acute fracture or dislocation does not appear to be present. No abnormal joint effusion; however, there is some soft tissue edema at the olecranon. No soft tissue foreign body. IMPRESSION: Negative for acute bony abnormality of the elbow. Posterior edema. Dictated by: Dictated on workstation # [id number] Dict: 12/05/22 163 Trans: 12/05/221699 PJE [id number] Interpreted by: MARY RESENDEZ DO Electronically signed by: MRAY RESENDEZ DO 12/05/221699 [facility], [place] NAME: [facility] REC#: [id number] PT STATUS: REG ER : 1950 PHYSICIAN: JULES TAI MD ADMIT DATE: 12/05/22/ER FS Signed Date of Exam:12/05/22 HIP 2-3 VIEW RIGHT INDICATION: Pain post fall. TECHNIQUE: Two views of the right hip. CORRELATION STUDY: None. FINDINGS: No acute fracture or dislocation. There is advanced osteoarthritic change with significant joint space narrowing. Overhanging osteophyte formation at the acetabular roof. Pubic rami intact with pubic symphysis and SI joint unremarkable. Mild vascular calcification. IMPRESSION: Negative for acute bony abnormality of the right hip. Advanced osteoarthritic degenerative change. Dictated by: Dictated on workstation # [id number] Dict: 12/05/22 163 Trans: 12/05/221700 PJE [id number] Interpreted by: MARY RESENDEZ DO Electronically signed by: MARY RESENDEZ DO 12/05/221700 [facility] [place] [facility] REC[facility] [id number] PT STATUS: REG ER : 1950 PHYSICIAN: JULES TAI MD ADMIT DATE: 12/05/22/ER FS Signed Date of Exam:12/05/22 CT HEAD WO Clinical indication: Patient with several falls at home in the past 2 weeks. Exam: Axial CT scan of the brain without IV contrast with coronal and sagittal reformatted images. Auto Exposure Controls were utilized during the CT exam to meet ALARA standards for radiation dose reduction. Comparison: None. Findings: There is skull streak artifact which obscures portions of the brainstem, posterior fossa and portions of the brain near the skull. There is no evidence of acute cerebral infarct, intracranial hemorrhage or gross mass effect. The brain parenchymal volume appears appropriate for patient's age. There is normal palomo-white matter distinction. There is no significant midline shift or herniation. There is no evidence of hydrocephalus. The basal cisterns are unremarkable. The skull, extracranial soft tissue and orbits are unremarkable. There is minimal ethmoid sinus mucosal thickening. There is a small amount of consolidation involving the left mastoid air cells. Impression: There is no CT evidence of acute intracranial process. There is no skull fracture. Dictated by: Dictated on workstation # [id number] Dict: 12/05/22 1636 Trans: 12/05/221708 [facility] [id number] Interpreted by: GI DRAPER MD Electronically signed by: GI DRAPER MD 12/05/229 Departure Communication (Admissions) Time/Spoke to Admitting Phy: 18:[address] Elise, hospitalist, and will admit to observation Impression Primary Impression: Hyponatremia Additional Impressions: Dehydration Recurrent falls Disposition: 30 STILL A PATIENT Condition: Stable Admissions Decision to Admit Reason: Admit from ER (General) Decision to Admit/Date: Dec 05, 2022 Time/Decision to Admit Time: 18:00 Transfer Method of Transfer: EMS Departure-Patient Inst. Referrals: XOCHITL,KO BRADLEY (PCP/Family) Primary Care Physician JULES TAI MD Dec 05, 2022 16:01
[2022-12-05 16:37] LABS: BASOPHILS % (AUTO) 0 % (0-10); EOSINOPHILS % (AUTO) 0 % (0-10); HEMATOCRIT 42 % (40-54); HEMOGLOBIN 14.5 g/dL (13.3-17.7); LYMPHOCYTES # (AUTO) 0.3 10^3/uL (1.0-4.0); LYMPHOCYTES % (AUTO) 3 % (12-44); MEAN CORPUSCULAR HEMOGLOBIN 32 pg (25-34); MEAN CORPUSCULAR HGB CONC 35 g/dL (32-36); MEAN CORPUSCULAR VOLUME 92 fL (80-99); MEAN PLATELET VOLUME 9.4 fL (9.0-12.2); MONOCYTES # (AUTO) 0.9 10^3/uL (0.0-1.0); MONOCYTES % (AUTO) 7 % (0-12); NEUTROPHILS % (AUTO) 89 % (42-75); PLATELET COUNT 209 10^3/uL (130-400); WHITE BLOOD COUNT 12.4 10^3/uL (4.3-11.0)
--- NOTE | 2022-12-05 16:41 | Diagnostic Imaging Report ---
INDICATION: Multiple recent falls over the past two weeks. Skin tear of left forearm. Pain. TECHNIQUE: 3 views of the right elbow. CORRELATION STUDY: None. FINDINGS: Small bone fragments adjacent to the lateral epicondyle and radial head may reflect a more remote injury. An acute fracture or dislocation does not appear to be present. No abnormal joint effusion; however, there is some soft tissue edema at the olecranon. No soft tissue foreign body. IMPRESSION: Negative for acute bony abnormality of the elbow. Posterior edema. Dictated by: Dictated on workstation # [id number]
[2022-12-05 16:43] LABS: BILIRUBIN,URINE NEGATIVE (NEGATIVE); CLARITY,URINE CLEAR; GLUCOSE, URINE (UA) NEGATIVE (NEGATIVE); KETONES,URINE 2+ (NEGATIVE); LEUKOCYTE ESTERASE ,URINE NEGATIVE (NEGATIVE); NITRITE,URINE NEGATIVE (NEGATIVE); PROTEIN,URINE TRACE (NEGATIVE)
--- NOTE | 2022-12-05 16:46 | Diagnostic Imaging Report ---
INDICATION: Pain post fall. TECHNIQUE: Two views of the right hip. CORRELATION STUDY: None. FINDINGS: No acute fracture or dislocation. There is advanced osteoarthritic change with significant joint space narrowing. Overhanging osteophyte formation at the acetabular roof. Pubic rami intact with pubic symphysis and SI joint unremarkable. Mild vascular calcification. IMPRESSION: Negative for acute bony abnormality of the right hip. Advanced osteoarthritic degenerative change. Dictated by: Dictated on workstation # [id number]
[2022-12-05 16:47] LABS: BACTERIA,URINE FEW /HPF; COLOR,URINE DARK YELLOW; RBC,URINE >100 /HPF
--- NOTE | 2022-12-05 16:48 | Diagnostic Imaging Report ---
Clinical indication: Patient with several falls at home in the past 2 weeks. Exam: Axial CT scan of the brain without IV contrast with coronal and sagittal reformatted images. Auto Exposure Controls were utilized during the CT exam to meet ALARA standards for radiation dose reduction. Comparison: None. Findings: There is skull streak artifact which obscures portions of the brainstem, posterior fossa and portions of the brain near the skull. There is no evidence of acute cerebral infarct, intracranial hemorrhage or gross mass effect. The brain parenchymal volume appears appropriate for patient's age. There is normal palomo-white matter distinction. There is no significant midline shift or herniation. There is no evidence of hydrocephalus. The basal cisterns are unremarkable. The skull, extracranial soft tissue and orbits are unremarkable. There is minimal ethmoid sinus mucosal thickening. There is a small amount of consolidation involving the left mastoid air cells. Impression: There is no CT evidence of acute intracranial process. There is no skull fracture. Dictated by: Dictated on workstation # [id number]
[2022-12-05 16:50] LABS: ALANINE AMINOTRANSFERASE 24 U/L (0-55); ALBUMIN 3.8 GM/DL (3.2-4.5); ALKALINE PHOSPHATASE 82 U/L (40-136); BILIRUBIN,TOTAL 1.1 MG/DL (0.1-1.0); BUN/CREATININE RATIO 44; CALCIUM 9.3 MG/DL (8.5-10.1); CARBON DIOXIDE 23 MMOL/L (21-32); CHLORIDE 86 MMOL/L (98-107); CREATININE SERUM 0.41 MG/DL (0.60-1.30); GFR ESTIMATED 114; GLUCOSE 109 MG/DL (70-105); MAGNESIUM 1.8 MG/DL (1.6-2.4); POTASSIUM 4.1 MMOL/L (3.6-5.0); TOTAL PROTEIN 6.4 GM/DL (6.4-8.2)
[2022-12-05 16:51] LABS: SODIUM 123 MMOL/L (135-145)
[2022-12-05 16:54] LABS: LYMPHOCYTES % (MANUAL) 2 %; MONOCYTES % (MANUAL) 4 %; NEUTROPHILS % (MANUAL) 94 %
[2022-12-05] MEDS ORDERED: NS IV 1000 ML 1,000 ML IV SCH (17:15)
[2022-12-05] MEDS ORDERED: ACETAMINOPHEN 500 MG TAB (TYLENOL) PO ONE (17:45)
[2022-12-05] MEDS ORDERED: ACETAMINOPHEN 325 MG TABLET PO PRN (19:45)
[2022-12-05] MEDS ORDERED: LORazepam 0.5 MG (ATIVAN) TABLET PO PRN (19:45)
[2022-12-05] MEDS ORDERED: MELATONIN 3 MG TABLET PO PRN (19:45)
[2022-12-05] MEDS ORDERED: NALOXONE 0.4 MG/ML 1 ML (NARCAN) VIAL IV PRN (19:45)
[2022-12-05] MEDS ORDERED: polyethylene glycoL POWDER 17 GM (MIRALAX) PACK PO PRN (19:45)
[2022-12-05] MEDS ORDERED: ANTACID SUSP 30 ML UDC (MYLANTA) PO PRN (19:45)
[2022-12-05] MEDS ORDERED: BISACODYL 10 MG SUPP (DULCOLAX) PR PRN (19:45)
[2022-12-05] MEDS ORDERED: diphenhydrAMINE 50 MG/ML INJ (BENADRYL) IVP PRN (19:45)
[2022-12-05] MEDS ORDERED: LORazepam INJ 2 MG/ML (ATIVAN) VIAL IVP PRN (19:45)
[2022-12-05] MEDS ORDERED: ONDANSETRON 4 MG/2 ML (SDV) Z0FRAN IV PRN (19:45)
[2022-12-05] MEDS ORDERED: diphenhydrAMINE 25 MG TAB (BENADRYL) PO PRN (19:45)
[2022-12-05] MEDS ORDERED: ONDANSETRON 4 MG (ZOFRAN) ORAL DISSOLVE TAB PO PRN (19:45)
[2022-12-05 19:50] VITALS: BP 120/66
[2022-12-05] MEDS: NS IV 1000 ML 1,000 ML IV SCH (19:56)
[2022-12-05] MEDS: DOCUSATE SODIUM 100 MG (COLACE) CAP PO SCH (20:51)
[2022-12-05] MEDS ORDERED: ENOXAPARIN 40 MG/0.4 ML (LOVENOX) SYR SC SCH (21:00)
[2022-12-05] MEDS ORDERED: HYDR2TAB30 PO (21:16)
[2022-12-05 21:53] VITALS: BP 120/86
[2022-12-05] MEDS ORDERED: RT-ALBUTEROL/IPRATROPIUM 3 ML (DUONEB) VIAL INH PRN (22:00)
[2022-12-06] VITALS (8 sets, daily range): BP systolic 108–149; BP diastolic 52–66
[2022-12-06 05:13] LABS: BASOPHILS % (AUTO) 0 % (0-10); EOSINOPHILS # (AUTO) 0.1 10^3/uL (0.0-0.3); EOSINOPHILS % (AUTO) 1 % (0-10); HEMATOCRIT 35 % (40-54); HEMOGLOBIN 12.1 g/dL (13.3-17.7); LYMPHOCYTES # (AUTO) 0.4 10^3/uL (1.0-4.0); LYMPHOCYTES % (AUTO) 5 % (12-44); MEAN CORPUSCULAR HEMOGLOBIN 32 pg (25-34); MEAN CORPUSCULAR HGB CONC 35 g/dL (32-36); MEAN CORPUSCULAR VOLUME 92 fL (80-99); MEAN PLATELET VOLUME 9.5 fL (9.0-12.2); MONOCYTES # (AUTO) 0.6 10^3/uL (0.0-1.0); MONOCYTES % (AUTO) 8 % (0-12); NEUTROPHILS # (AUTO) 6.3 10^3/uL (1.8-7.8); NEUTROPHILS % (AUTO) 85 % (42-75); PLATELET COUNT 182 10^3/uL (130-400); WHITE BLOOD COUNT 7.4 10^3/uL (4.3-11.0)
[2022-12-06 05:25] LABS: ALBUMIN 2.9 GM/DL (3.2-4.5)
[2022-12-06 05:26] LABS: POTASSIUM 3.6 MMOL/L (3.6-5.0)
[2022-12-06 05:27] LABS: CALCIUM 8.2 MG/DL (8.5-10.1)
[2022-12-06 05:30] LABS: BILIRUBIN,TOTAL 0.9 MG/DL (0.1-1.0)
[2022-12-06 05:32] LABS: CREATININE SERUM 0.48 MG/DL (0.60-1.30)
[2022-12-06] MEDS: NS IV 1000 ML 1,000 ML IV SCH ×2 (05:40→16:40)
[2022-12-06] MEDS: DOCUSATE SODIUM 100 MG (COLACE) CAP PO SCH ×2 (08:20→21:13)
--- NOTE | 2022-12-06 11:58 | History & Physical ---
HPI History of Present Illness: When son, John went to his house last night to visit and check on him, he had fallen and had been down for a bit and didn't have his phone on him, went to ER and had xrays and things. He has been having trouble with weakness and falls for a couple of weeks. He has a history of cancer at back of tongue and sees Dr. Rollins, he has been having trouble with pain going up the side of his face and he was started on a pain med that they hadn't heard of before which finally seemed to be the only thing that helped, started around two weeks ago. He had biopsy last week of the area where he is having chronic pain and was to follow up on those results this morning. Denies fever. Has been drinking water, but not able to eat and drink much in general. Is getting 5 bottles per day of protein formula through tube, has been since last April. He states food tastes bad and he doesn't make saliva which leads to poor intake, but he thinks it has been about the same since April when he had his tube placed. Source: patient Date seen by provider: Dec 06, 2022 Time Seen by Provider: 11:58 Attending Physician Navid Ryan MD PCP Admitting Physician: Dyan Elise DO Attending Physician: Letty Meza MD Consult Date of Admission Dec 05, 2022 at 19:35 Home Medications Home Medications Reviewed patient Home Medication Reconciliation performed by pharmacy medication reconciliations automotive engineering technician and/or nursing. Patients Allergies have been reviewed. Allergies Coded Allergies: No Known Drug Allergies (Unverified , 05/27/22) SOK-Bdrigs-Fivmjw Hx Patient Social History Smoking Status: Current Everyday Smoker 2nd Hand Smoke Exposure: No Recent Hopitalizations: No Alcohol Use?: No Tobacco type used: Cigarettes Have you traveled recently?: No Immunizations Up To Date First/Initial COVID19 Vaccinat: 03/07/2021 Second COVID19 Vaccination Raul: 03/28/2021 Third COVID19 Vaccination Date: 03/07/2021 Past Medical History PMHx: Tongue cancer SurgHx: Bilateral shoulder surgeries 3 discs in back Family Medical History Significant Family History: No Pertinent Family Hx Review of Systems (CHC) Constitutional: No fever EENTM: No nose congestion, No throat pain Respiratory: cough (chronic), short of breath (chronic) Cardiovascular: No chest pain Gastrointestinal: No abdominal pain, No constipation, No diarrhea, No nausea, No vomiting Genitourinary: No dysuria Musculoskeletal: see HPI Skin: No rash Reviewed Test Results Reviewed Test Results Lab Laboratory Tests Test 12/05/22 16:10 12/05/22 18:00 12/06/22 04:53 12/06/22 10:31 Range/Units White Blood Count 12.4 H 7.4 4.3-11.0 10^3/uL Red Blood Count 4.56 3.80 L 4.30-5.52 10^6/uL Hemoglobin 14.5 12.1 L 13.3-17.7 g/dL Hematocrit 42 35 L 40-54 % Mean Corpuscular Volume 92 92 80-99 fL Mean Corpuscular Hemoglobin 32 32 25-34 pg Mean Corpuscular Hemoglobin Concent 35 35 32-36 g/dL Red Cell Distribution Width 12.9 12.6 10.0-14.5 % Platelet Count 209 182 130-400 10^3/uL Mean Platelet Volume 9.4 9.5 9.0-12.2 fL Immature Granulocyte % (Auto) 1 1 % Neutrophils (%) (Auto) 89 H 85 H 42-75 % Lymphocytes (%) (Auto) 3 L 5 L 12-44 % Monocytes (%) (Auto) 7 8 0-12 % Eosinophils (%) (Auto) 0 1 0-10 % Basophils (%) (Auto) 0 0 0-10 % Neutrophils # (Auto) 11.0 H 6.3 1.8-7.8 10^3/uL Lymphocytes # (Auto) 0.3 L 0.4 L 1.0-4.0 10^3/uL Monocytes # (Auto) 0.9 0.6 0.0-1.0 10^3/uL Eosinophils # (Auto) 0.0 0.1 0.0-0.3 10^3/uL Basophils # (Auto) 0.0 0.0 0.0-0.1 10^3/uL Immature Granulocyte # (Auto) 0.2 H 0.1 0.0-0.1 10^3/uL Neutrophils % (Manual) 94 % Lymphocytes % (Manual) 2 % Monocytes % (Manual) 4 % Urine Color DARK YELLOW Urine Clarity CLEAR Urine pH 7.0 5-9 Urine Specific [place] 1.020 1.016-1.022 Urine Protein TRACE H NEGATIVE Urine Glucose (UA) NEGATIVE NEGATIVE Urine Ketones 2+ H NEGATIVE Urine Nitrite NEGATIVE NEGATIVE Urine Bilirubin NEGATIVE NEGATIVE Urine Urobilinogen 1.0 < = 1.0 MG/DL Urine Leukocyte Esterase NEGATIVE NEGATIVE Urine RBC (Auto) 3+ H NEGATIVE Urine RBC >100 H /HPF Urine WBC 5-10 H /HPF Urine Squamous Epithelial Cells 5-10 /HPF Urine Crystals NONE /LPF Urine Bacteria FEW H /HPF Urine Casts PRESENT /LPF Urine Granular Casts 2-5 H /LPF Urine Mucus LARGE H /LPF Urine Culture Indicated YES Sodium Level 123 *L 124 *L 126 L 135-145 MMOL/L Potassium Level 4.1 3.6 3.6-5.0 MMOL/L Chloride Level 86 L 93 L 98-107 MMOL/L Carbon Dioxide Level 23 23 21-32 MMOL/L Anion Gap 14 10 5-14 MMOL/L Blood Urea Nitrogen 18 14 7-18 MG/DL Creatinine 0.41 L 0.48 L 0.60-1.30 MG/DL Estimat Glomerular Filtration Rate 114 109 BUN/Creatinine Ratio 44 29 Glucose Level 109 H 74 70-105 MG/DL Calcium Level 9.3 8.2 L 8.5-10.1 MG/DL Corrected Calcium 9.5 9.1 8.5-10.1 MG/DL Magnesium Level 1.8 1.6-2.4 MG/DL Total Bilirubin 1.1 H 0.9 0.1-1.0 MG/DL Aspartate Amino Transf (AST/SGOT) 69 H 75 H 5-34 U/L Alanine Aminotransferase (ALT/SGPT) 24 26 0-55 U/L Alkaline Phosphatase 82 58 40-136 U/L Troponin I < 0.30 <0.30 NG/ML Total Protein 6.4 5.0 L 6.4-8.2 GM/DL Albumin 3.8 2.9 L 3.2-4.5 GM/DL Glucometer 80 70-110 MG/DL Radiology 12/05/[address] Impression: There is no CT evidence of acute intracranial process. There is no skull fracture. 12/05/22 Right hip xray: IMPRESSION: Negative for acute bony abnormality of the right hip. Advanced osteoarthritic degenerative change. 12/05/22 Right Elbow xray: IMPRESSION: Negative for acute bony abnormality of the elbow. Posterior edema. Physical Exam-(CHC) Physical Exam Vital Signs VS - Last 72 Hours, by Label 12/05/22 12/05/22 12/05/22 12/05/22 15:59 18:36 19:35 19:50 Temp 36.1 36.6 36.2 Pulse 99 90 93 Resp 16 16 22 B/P (MAP) 114/57 (76) 118/45 120/66 (84) Pulse Ox 97 95 93 93 O2 Delivery Room Air Room Air Room Air Room Air 12/05/22 12/05/22 12/06/22 12/06/22 20:14 21:53 00:02 01:00 Temp 36.2 36.9 Pulse 88 93 83 98 Resp 16 B/P (MAP) 125/66 (85) Pulse Ox 95 92 O2 Delivery Room Air FiO2 21 12/06/22 12/06/22 12/06/22 12/06/22 03:50 07:18 07:37 08:00 Temp 36.9 Pulse 88 91 Resp 16 B/P (MAP) 149/63 (91) Pulse Ox 91 90 93 O2 Delivery Room Air Room Air Room Air O2 Flow Rate 0.00 12/06/22 12/06/22 12/06/22 12/06/22 08:06 11:35 11:36 11:46 Temp 36.6 Pulse 88 Resp 20 B/P (MAP) 132/62 (85) Pulse Ox 92 88 90 O2 Delivery Room Air Room Air Nasal Cannula Nasal Cannula O2 Flow Rate 0.00 2.00 2.00 12/06/22 12/06/22 12/06/22 12/06/22 11:52 12:02 13:11 14:11 Temp 36.6 36.7 36.3 Pulse 84 84 74 82 Resp 20 20 B/P (MAP) 117/57 (77) 115/54 (74) Pulse Ox 92 90 93 O2 Delivery Room Air Nasal Cannula O2 Flow Rate 2.00 FiO2 28 12/06/22 12/06/22 12/06/22 14:46 15:30 19:22 Temp 36.8 36.1 Pulse 84 76 Resp 18 18 B/P (MAP) 110/52 (71) 108/55 (72) Pulse Ox 96 95 94 O2 Delivery Nasal Cannula Nasal Cannula Nasal Cannula O2 Flow Rate 2.00 2.50 2.50 Capillary Refill : General Appearance: no apparent distress Respiratory: lungs clear Cardiovascular: irregularly irregular Gastrointestinal: normal bowel sounds, soft Neurologic/Psychiatric: alert, other (flat affect) Assessment/Plan Assessment/Plan Admission Status: Observation (1) Hyponatremia Status: Acute Assessment & Plan: Improving with NS, suspect hypovolemic hyponatremia due to poor intake (2) Recurrent falls Status: Acute Assessment & Plan: Possibly related to hyponatremia versus generalized debility. PT. (3) Uses feeding tube Status: Chronic Assessment & Plan: Resume home tube feeds. (4) Hypovolemia Status: Acute Assessment & Plan: Normal saline at 90 mls/hr currently, improving hyponatremia. (5) Atrial fibrillation Status: Acute Assessment & Plan: No known history, start enoxaparin treatment dose, check TSH, heart rate controlled, asymptomatic. Cardiology consulted. (6) Squamous cell cancer of tongue Assessment & Plan: Followed by Dr. Rollins, patient's son reports he talked to the office today already. Will contact Dr. Rollins to make sure he is aware of hospitalization and see if further recommendations. (7) DVT prophylaxis Status: Acute Assessment & Plan: Enoxaparin LETTY MEZA MD Dec 06, 2022 11:58
[2022-12-06] MEDS: HYDROmorphone (DILAUDID) 2 MG TAB PO SCH (12:37)
[2022-12-06] MEDS ORDERED: RT-ALBUTEROL/IPRATROPIUM 3 ML (DUONEB) VIAL INH PRN (13:00)
[2022-12-06] MEDS: RT-ALBUTEROL/IPRATROPIUM 3 ML (DUONEB) VIAL INH SCH ×2 (14:45→21:58)
[2022-12-06] MEDS ORDERED: ENOXAPARIN 40 MG/0.4 ML (LOVENOX) SYR SC NR (15:00)
[2022-12-06 20:44] LABS: CALCIUM 7.6 MG/DL (8.5-10.1); CREATININE SERUM 0.54 MG/DL (0.60-1.30); POTASSIUM 3.5 MMOL/L (3.6-5.0)
[2022-12-06] MEDS ORDERED: ENOXAPARIN 40 MG/0.4 ML (LOVENOX) SYR SC SCH (21:00)
[2022-12-06] MEDS: ENOXAPARIN 80 MG/0.8 ML (LOVENOX) SYR SC SCH (21:13)
[2022-12-07] VITALS: BP 119/58
[2022-12-07] MEDS: RT-ALBUTEROL/IPRATROPIUM 3 ML (DUONEB) VIAL INH SCH ×4 (02:26→19:37)
[2022-12-07 03:46] VITALS: BP 117/58
[2022-12-07] MEDS: NS IV 1000 ML 1,000 ML IV SCH ×2 (03:56→15:53)
[2022-12-07 05:53] LABS: BASOPHILS % (AUTO) 0 % (0-10); EOSINOPHILS # (AUTO) 0.1 10^3/uL (0.0-0.3); EOSINOPHILS % (AUTO) 1 % (0-10); HEMATOCRIT 34 % (40-54); HEMOGLOBIN 11.6 g/dL (13.3-17.7); LYMPHOCYTES # (AUTO) 0.3 10^3/uL (1.0-4.0); LYMPHOCYTES % (AUTO) 5 % (12-44); MEAN CORPUSCULAR HEMOGLOBIN 32 pg (25-34); MEAN CORPUSCULAR HGB CONC 34 g/dL (32-36); MEAN CORPUSCULAR VOLUME 92 fL (80-99); MEAN PLATELET VOLUME 9.6 fL (9.0-12.2); MONOCYTES # (AUTO) 0.6 10^3/uL (0.0-1.0); MONOCYTES % (AUTO) 9 % (0-12); NEUTROPHILS # (AUTO) 6.1 10^3/uL (1.8-7.8); NEUTROPHILS % (AUTO) 85 % (42-75); PLATELET COUNT 183 10^3/uL (130-400); WHITE BLOOD COUNT 7.2 10^3/uL (4.3-11.0)
[2022-12-07 06:20] LABS: ALBUMIN 2.9 GM/DL (3.2-4.5); BILIRUBIN,TOTAL 0.5 MG/DL (0.1-1.0); CALCIUM 7.9 MG/DL (8.5-10.1); CREATININE SERUM 0.49 MG/DL (0.60-1.30); POTASSIUM 3.3 MMOL/L (3.6-5.0); TOTAL PROTEIN 5.1 GM/DL (6.4-8.2)
[2022-12-07 07:51] VITALS: BP 127/58
[2022-12-07] MEDS: DOCUSATE SODIUM 100 MG (COLACE) CAP PO SCH ×2 (08:01→20:31)
[2022-12-07] MEDS: ENOXAPARIN 80 MG/0.8 ML (LOVENOX) SYR SC SCH (08:06)
[2022-12-07] MEDS: POTASSIUM CL 10MEQ/50ML IVPB 50 ML IV SCH ×3 (08:50→11:34)
--- NOTE | 2022-12-07 10:07 | Physical Therapy Evaluation ---
PT Evaluation-General Medical Diagnosis Admission Date Dec 05, 2022 at 19:35 Medical Diagnosis: dehydration/hyponatremia Onset Date: Dec 05, 2022 Therapy Diagnosis Therapy Diagnosis: debility/weakness Precautions Precautions/Isolations: Fall Prevention, Standard Precautions Referral Physician: Pancho Reason for Referral: Evaluation/Treatment Medical History Pertinent Medical History: Smoking Additional Medical History tongue cancer/PEG tube Current History ER secondary to multiple falls at home Reviewed History: Yes Social History Home: Single Level Current Living Status: Children Prior Prior Level of Function SCALE: Activities may be completed with or without assistive devices. 3-Ikhecebfie-siotgsl completes the activity by him/herself with no assistance from a helper. 5-Set-up or Clean-up Assistance-helper sets up or cleans up; patient completes activity. Corona assists only prior to or following the activity. 4-Supervision or Touching Assistance-helper provides verbal cues and/or touching/steadying and/or contact guard assistance as patient completes activity. Assistance may be provided throughout the activity or intermittently. 3-Partial/Moderate Assistance-helper does LESS THAN HALF the effort. Corona lifts, holds or supports trunk or limbs, but provides less than half the effort. 2-Substantial/Maximal Assistance-helper does MORE THAN HALF the effort. Corona lifts or holds trunk or limbs and provides more than half the effort. 5-Phjitqbbd-iaghwi does ALL the effort. Patient does none of the effort to complete the activity. Or, the assistance of 2 or more helpers is required for the patient to complete the activity. If activity was not attempted, code reason: 7-Patient Refused. 9-Not Applicable-not attempted and the patient did not perform the activity before the current illness, exacerbation or injury. 10-Not Attempted due to Environmental Limitations-(lack of equipment, weather restraints, etc.). 88-Not Attempted due to Medical Conditions or Safety Concerns. Bed Mobility: 6 Transfers (B,C,W/C): 6 Gait: 6 Indoor Mobility (Ambulation): Independent Prior Devices Use: Walker (per patient report) PT Evaluation-Current Subjective Patient agrees to PT. Objective Patient Orientation: Person, Time, Situation Attachments: Central Line, PEG Tube ROM/Strength ROM Lower Extremities bilateral LE WFL Strength Lower Extremities 3+/5 grossly bilateral LE all planes Integumentary/Posture Integumentary refer to nursing notes Bowel Incontinence: Yes Bladder Incontinence: Yes Posture WFL Neuromuscular (Tone, Coordination, Reflexes) grossly intact Sensory Vision: Functional Hearing: Functional Transfers Lying to Sitting/Side of Bed(Q: 3 Sit to Stand (QC): 3 Chair/Zku-an-Ltdhq Xfer(QC): 3 Toilet Transfer (QC): 3 Gait Mode of Locomotion: Walk Anticipated Mode of Locomotion: Walk Walk 10 feet (QC): 3 Walk 50 ft with 2 Turns(QC): 3 Walk 150 ft (QC): 88 Distance: 50' Gait Assistive Device: FWW Comments/Gait Description functional gait sequence with no deviation Balance Sitting Static: Normal Sitting Dynamic: Normal Standing Static: Fair Standing Dynamic: Fair Assessment/Needs Patient will benefit from skilled PT to address functional strength and mobility to improve current LOF to safely return to home with family at maximum LOF. Rehab Potential: Guarded (smoking) PT Branch Examiner Goals Snf Goals PT Branch Examiner Goals Time Frame: December 18, 2022 Roll Left & Right (QC): 6 Sit to Lying (QC): 6 Lying-Sitting on Side/Bed(QC): 6 Sit to Stand (QC): 6 Chair/Mhi-wm-Muvjk Xfer(QC): 6 Toilet Transfer (QC): 6 Walk 10 feet (QC): 4 Walk 50ft with 2 Turns (QC): 4 Walk 150 ft (QC): 4 PT Plan Problem List Problem List: Activity Tolerance, Functional Strength, Safety, Balance, Gait, Transfer, Bed Mobility Treatment/Plan Treatment Plan: Continue Plan of Care Treatment Plan: Bed Mobility, Education, Functional Activity Ellyn, Functional Strength, Gait, Safety, Therapeutic Exercise, Transfers Treatment Duration: December 18, 2022 Frequency: 6 times per week Estimated Hrs Per Day: .25 hour per day Time Time In: 915 Time Out: 930 DATE: Dec 07, 2022 Total Billed Treatment Time: 15 Total Billed Treatment 1 visit [facility] 15 min LORAINE CAMEJO PT Dec 07, 2022 10:07
--- NOTE | 2022-12-07 10:58 | Consultation-Cardiology ---
HPI-Cardiology Cardiology Consultation: Date of Consultation 12/07/22 Time Seen by a Provider: 10:50 Date of Admission 12-06-22 Attending Physician Navid Ryan MD Admitting Physician Admitting Physician: Dyan Elise DO Attending Physician: Candice Deleon MD Consulting Physician Felicita Morley MD HPI: Chief Complaint: Arrhythmia Provider requesting consult: Dr. Deleon Mr. Schmidt is a 72 yr old male admitted to [facility] from the ED. He reports he h as had frequent falls at home recently d/t poor balance, denies any c/o syncope or near syncope. No c/o CP, palpitations. No c/o LE swelling. Chronic STOCK. States he has h/o mass on his tongue for which he had been receiving chemo and radiation which was completed in July 2022; follows with Dr. Rollins. He reports he has had a recent biopsy on a mass on the tongue by Dr. Huang for which they are waiting on the results. He reports he has a PEG tube in place since March 2022. He continues to smoke cigs. Review of Systems-Cardiology Review of Systems Constitutional: No chills, No fever; malaise Eyes: No vision change Ears/Nose/Throat: No epistaxis, No recent hearing loss Respiratory: As described under HPI Cardiovascular: As described under HPI Gastrointestinal: As described under HPI; No diarrhea, No nausea, No vomiting Genitourinary: No dysuria Musculoskeletal: no symptoms reported Skin: No rash on exposed areas, No ulcerations on exposed areas Psychiatric/Neurological: No seizure, No focal weakness, No syncope Hematologic: No bleeding abnormalities NHF-Mcbdzv-Bpkyye Hx Patient Social History Smoking Status: Current Everyday Smoker 2nd Hand Smoke Exposure: No Have you traveled recently?: No Alcohol Use?: No Pt feels they are or have been: Unable to obtain Tobacco type used: Cigarettes Past Medical History PMH As described under Assessment. Family Medical History Family Medical History: He reports his father had CAD. Allergies and Home Medications Allergies Coded Allergies: No Known Drug Allergies (Unverified , 05/27/22) Patient Home Medication List Hydromorphone HCl (Dilaudid) 2 Mg Tablet, 2 MG PO 1200, (Reported) Entered as Reported by: JOSE M MONTERO on 12/05/222115 Last Action: Continued Physical Exam-Cardiology Physical Exam Vital Signs/I&O 12/07/22 12/07/22 12/07/22 12/07/22 07:17 07:51 08:00 08:09 Temp 36.3 Pulse 91 79 Resp 20 B/P (MAP) 127/58 (81) Pulse Ox 90 92 O2 Delivery Room Air Room Air Room Air O2 Flow Rate 0.00 12/07/22 12/07/22 12/07/22 12/07/22 11:24 12:35 15:07 15:25 Temp 36.3 36.4 Pulse 73 77 79 Resp 18 18 B/P (MAP) 133/63 (86) 128/60 (82) Pulse Ox 95 91 O2 Delivery Room Air Room Air Nasal Cannula O2 Flow Rate 0.00 2.00 12/07/22 00:00 Intake Total 1420 ml Output Total 500 ml Balance 920 ml Capillary Refill : Constitutional: AAO x 3, well-developed, other (frail) HEENT: hearing is well preserved; No oral hygience is good Neck: No carotid bruit; carotid pulses are 2 + bilaterally Respiratory: No accessory muscle use, No respiratory distress; chest expansion is symmetric, chest is bilaterally symmetric, other (scattered wheezes throughout with prolonged exp phase; diminished throughout) Cardiovascular: regular rate-rhythm; No JVD; S1 and S2 Gastrointestinal: other (PEG tube in place) Extremities: no lower extremity edema bilateral Neurologic/Psychiatric: grossly intact (moves all extremities) Skin: No rash on exposed areas, No ulcerations on exposed areas Data Review Labs Laboratory Tests 12/06/22 19:54: Sodium Level 129L, Potassium Level 3.5L, Chloride Level 94L, Carbon Dioxide Level 28, Anion Gap 7, Blood Urea Nitrogen 12, Creatinine 0.54L, Estimat Glomerular Filtration Rate 105, BUN/Creatinine Ratio 22, Glucose Level 139H, Calcium Level 7.6L, Thyroid Stimulating Hormone (TSH) 1.15 12/07/22 05:40: Sodium Level 131L, Potassium Level 3.3L, Chloride Level 94L, Carbon Dioxide Level 28, Anion Gap 9, Blood Urea Nitrogen 10, Creatinine 0.49L, Estimat Meagan merular Filtration Rate 108, BUN/Creatinine Ratio 20, Glucose Level 100, Calcium Level 7.9L, White Blood Count 7.2, Red Blood Count 3.68L, Hemoglobin 11.6L, Hematocrit 34L, Mean Corpuscular Volume 92, Mean Corpuscular Hemoglobin 32, Mean Corpuscular Hemoglobin Concent 34, Red Cell Distribution Width 12.5, Platelet Count 183, Mean Platelet Volume 9.6, Immature Granulocyte % (Auto) 1, Neutrophils (%) (Auto) 85H, Lymphocytes (%) (Auto) 5L, Monocytes (%) (Auto) 9, Eosinophils (%) (Auto) 1, Basophils (%) (Auto) 0, Neutrophils # (Auto) 6.1, Lymphocytes # (Auto) 0.3L, Monocytes # (Auto) 0.6, Eosinophils # (Auto) 0.1, Bas ophils # (Auto) 0.0, Immature Granulocyte # (Auto) 0.1, Corrected Calcium 8.8, Total Bilirubin 0.5, Aspartate Amino Transf (AST/SGOT) 53H, Alanine Aminotransferase (ALT/SGPT) 29, Alkaline Phosphatase 50, Total Protein 5.1L, Albumin 2.9L Microbiology 12/05/22 Urine Culture - Final, Complete >=3 Gram Positive Isolates Radiology NAME: AXELCHIARA [facility] REC#: [id number] PT STATUS: REG ER : 1950 PHYSICIAN: JULES TAI MD ADMIT DATE: 12/05/22/ER FS Signed Date of Exam:12/05/22 ELBOW 3 VIEW RIGHT INDICATION: Multiple recent falls over the past two weeks. Skin tear of left forearm. Pain. TECHNIQUE: 3 views of the right elbow. CORRELATION STUDY: None. FINDINGS: Small bone fragments adjacent to the lateral epicondyle and radial head may reflect a more remote injury. An acute fracture or dislocation does not appear to be present. No abnormal joint effusion; however, there is some soft tissue edema at the olecranon. No soft tissue foreign body. IMPRESSION: Negative for acute bony abnormality of the elbow. Posterior edema. Dictated by: Dictated on workstation # [id number] Dict: 12/05/22 1633 Trans: 12/05/221699 [facility] [id number] Interpreted by: MARY RESENDEZ DO Electronically signed by: MARY RESENDEZ DO 12/05/221699 NAME: CHIARA SCHMIDT [facility] REC#: [id number] PT STATUS: REG ER : 1950 PHYSICIAN: JULES TAI MD ADMIT DATE: 12/05/22/ER FS Signed Date of Exam:12/05/22 HIP 2-3 VIEW RIGHT INDICATION: Pain post fall. TECHNIQUE: Two views of the right hip. CORRELATION STUDY: None. FINDINGS: No acute fracture or dislocation. There is advanced osteoarthritic change with significant joint space narrowing. Overhanging osteophyte formation at the acetabular roof. Pubic rami intact with pubic symphysis and SI joint unremarkable. Mild vascular calcification. IMPRESSION: Negative for acute bony abnormality of the right hip. Advanced osteoarthritic degenerative change. Dictated by: Dictated on workstation # [id number] Dict: 12/05/22 1637 Trans: 12/05/22 170 [facility] [id number] Interpreted by: MARY RESENDEZ DO Electronically signed by: MARY RESENDEZ DO 12/05/221700 NAME: SCHMIDTCHIARA [facility] REC#: [id number] PT STATUS: REG ER : 1950 PHYSICIAN: JULES TAI MD ADMIT DATE: 12/05/22/ER FS Signed Date of Exam:12/05/22 CT HEAD WO Clinical indication: Patient with several falls at home in the past 2 weeks. Exam: Axial CT scan of the brain without IV contrast with coronal and sagittal reformatted images. Auto Exposure Controls were utilized during the CT exam to meet ALARA standards for radiation dose reduction. Comparison: None. Findings: There is skull streak artifact which obscures portions of the brainstem, posterior fossa and portions of the brain near the skull. There is no evidence of acute cerebral infarct, intracranial hemorrhage or gross mass effect. The brain parenchymal volume appears appropriate for patient's age. There is normal palomo-white matter distinction. There is no significant midline shift or herniation. There is no evidence of hydrocephalus. The basal cisterns are unremarkable. The skull, extracranial soft tissue and orbits are unremarkable. There is minimal ethmoid sinus mucosal thickening. There is a small amount of consolidation involving the left mastoid air cells. Impression: There is no CT evidence of acute intracranial process. There is no skull fracture. Dictated by: Dictated on workstation # [id number] Dict: 12/05/22 1636 Trans: 12/05/22 170 [facility] [id number] Interpreted by: GI DRAPER MD Electronically signed by: GI DRAPER MD 12/05/22 1709 ECG Impression ECG Initial ECG Rhythm: Normal Sinus (SR with PAC's) A/P-Cardiology Assessment/Admission Diagnosis Arrhythmia - SR with PAC's on EKG's and tele COPD Tongue cancer/mass on tongue - has been following with Dr. Rollins and Dr. Huang - has had a recent bx (they are awaiting the results) - PEG tube in place since March 2022 Frequent falls - pt reports d/t poor balance - denies syncope Tobacco user - cessation advised Reports h/o HLD - managed by PCP Hyponatremia - management per medical services Hypokalemia - replace Discussion and Recomendations Arrhythmia - EKG's and tele strips reviewed showing SR with PAC's - D/C tx dosing Lovenox and change to DVT dosing Management of freq, non-syncopal falls per medical services Hyponatremia/hypokalemia - possibly secondary to poor intake - management per medical services Management of tongue mass per medical services Further recs will be based on his hospital course We would like to thank Dr. Deleon for this consult GERRY ARCINIEGA Dec 07, 2022 10:58
[2022-12-07 11:24] VITALS: BP 133/63
[2022-12-07] MEDS: DULoxetine 30 MG (CYMBALTA) CAP PO SCH ×2 (11:31→20:31)
[2022-12-07] MEDS: HYDROmorphone (DILAUDID) 2 MG TAB PO SCH (11:32)
--- NOTE | 2022-12-07 11:54 | Consultation-Cardiology ---
HPI-Cardiology Cardiology Consultation: Date of Consultation 12/07/22 Time Seen by a Provider: 11:40 Date of Admission Attending Physician Navid Ryan MD Admitting Physician Admitting Physician: Dyan Elise DO Attending Physician: Candice Deleon MD Consulting Physician GRISEL KEENAN MD, MA, FACP, FAC, [facility] Physician requesting consult: Dr Deleon HPI: Chief Complaint: Reason for Card consult: Arrhythmia Mr. Schmidt is a 72 yr old male admitted to [facility] from the ED. He reports he has had frequent falls at home recently d/t poor balance, denies any c/o syncope or near syncope. No c/o CP, palpitations. No c/o LE swelling. Chronic STOCK. States he has h/o mass on his tongue for which he had been receiving chemo and radiation which was completed in July 2022; follows with Dr. Rollins. He reports he has had a recent biopsy on a mass on the tongue by Dr. Huang for which they are waiting on the results. He reports he has a PEG tube in place since March 2022. He continues to smoke cigs. Review of Systems-Cardiology Review of Systems Constitutional: No chills, No fever; malaise Eyes: No vision change Ears/Nose/Throat: No epistaxis, No recent hearing loss Respiratory: As described under HPI Cardiovascular: As described under HPI Gastrointestinal: As described under HPI; No diarrhea, No nausea, No vomiting Genitourinary: No dysuria Musculoskeletal: no symptoms reported Skin: No rash on exposed areas, No ulcerations on exposed areas Psychiatric/Neurological: No seizure, No focal weakness, No syncope Hematologic: No bleeding abnormalities YRA-Hkpekz-Tpwwcy Hx Patient Social History Smoking Status: Current Everyday Smoker 2nd Hand Smoke Exposure: No Have you traveled recently?: No Alcohol Use?: No Pt feels they are or have been: Unable to obtain Tobacco type used: Cigarettes Past Medical History PMH As described under Assessment. Family Medical History Family Medical History: He reports his father had CAD. Allergies and Home Medications Allergies Coded Allergies: No Known Drug Allergies (Unverified , 05/27/22) Patient Home Medication List Home Medication List Reviewed: Yes Hydromorphone HCl (Dilaudid) 2 Mg Tablet, 2 MG PO 1200, (Reported) Entered as Reported by: JOSE M MONTERO on 12/05/222115 Last Action: Continued Physical Exam-Cardiology Physical Exam Vital Signs/I&O 12/07/22 12/07/22 12/07/22 12/07/22 00:00 01:00 02:25 03:46 Temp 36.5 36.2 Pulse 85 82 77 Resp 16 16 B/P (MAP) 119/58 (78) 117/58 (77) Pulse Ox 92 95 91 O2 Delivery Nasal Cannula Nasal Cannula Room Air O2 Flow Rate 1.00 2.00 12/07/22 12/07/22 12/07/22 12/07/22 07:17 07:51 08:00 08:09 Temp 36.3 Pulse 91 79 Resp 20 B/P (MAP) 127/58 (81) Pulse Ox 90 92 O2 Delivery Room Air Room Air Room Air O2 Flow Rate 0.00 12/07/22 11:24 Temp 36.3 Pulse 73 Resp 18 B/P (MAP) 133/63 (86) Pulse Ox 95 O2 Delivery Room Air 12/07/22 00:00 Intake Total 1420 ml Output Total 500 ml Balance 920 ml Capillary Refill : Constitutional: AAO x 3, well-developed, other (frail) HEENT: hearing is well preserved; No oral hygience is good Neck: No carotid bruit; carotid pulses are 2 + bilaterally Respiratory: No accessory muscle use, No respiratory distress; chest expansion is symmetric, chest is bilaterally symmetric, other (scattered wheezes throughout with prolonged exp phase; diminished throughout) Cardiovascular: regular rate-rhythm; No JVD; S1 and S2 Gastrointestinal: other (PEG tube in place) Extremities: no lower extremity edema bilateral Neurologic/Psychiatric: other (moves all extremities) Skin: No rash on exposed areas, No ulcerations on exposed areas Data Review Labs Laboratory Tests 12/06/22 19:54: Sodium Level 129L, Potassium Level 3.5L, Chloride Level 94L, Carbon Dioxide Level 28, Anion Gap 7, Blood Urea Nitrogen 12, Creatinine 0.54L, Estimat Glomerular Filtration Rate 105, BUN/Creatinine Ratio 22, Glucose Level 139H, Calcium Level 7.6L, Thyroid Stimulating Hormone (TSH) 1.15 12/07/22 05:40: Sodium Level 131L, Potassium Level 3.3L, Chloride Level 94L, Carbon Dioxide Level 28, Anion Gap 9, Blood Urea Nitrogen 10, Creatinine 0.49L, Estimat Glomerular Filtration Rate 108, BUN/Creatinine Ratio 20, Glucose Level 100, Calcium Level 7.9L, White Blood Count 7.2, Red Blood Count 3.68L, Hemoglobin 11.6L, Hematocrit 34L, Mean Corpuscular Volume 92, Mean Corpuscular Hemoglobin 32, Mean Corpuscular Hemoglobin Concent 34, Red Cell Distribution Width 12.5, Platelet Count 183, Mean Platelet Volume 9.6, Immature Granulocyte % (Auto) 1, Neutrophils (%) (Auto) 85H, Lymphocytes (%) (Auto) 5L, Monocytes (%) (Auto) 9, Eosinophils (%) (Auto) 1, Basophils (%) (Auto) 0, Neutrophils # (Auto) 6.1, Lymphocytes # (Auto) 0.3L, Monocytes # (Auto) 0.6, Eosinophils # (Auto) 0.1, Basophils # (Auto) 0.0, Immature Granulocyte # (Auto) 0.1, Corrected Calcium 8.8, Total Bilirubin 0.5, Aspartate Amino Transf (AST/SGOT) 53H, Alanine Aminotransferase (ALT/SGPT) 29, Alkaline Phosphatase 50, Total Protein 5.1L, Albumin 2.9L Microbiology 12/05/22 Urine Culture - Preliminary, Resulted Slight Growth Present A/P-Cardiology Assessment/Admission Diagnosis Arrhythmia - SR with PAC's on EKG's and tele COPD Tongue cancer/mass on tongue - has been following with Dr. Rollins and Dr. Huang - has had a recent bx (they are awaiting the results) - PEG tube in place since March 2022 Frequent falls - pt reports d/t poor balance - denies syncope Tobacco user - cessation advised Reports h/o HLD - managed by PCP Hyponatremia - management per medical services Hypokalemia - replace Discussion and Recomendations Arrhythmia - EKG's and tele strips reviewed showing SR with PAC's - D/C tx dosing Lovenox and change to DVT dosing Management of freq, non-syncopal falls per medical services Hyponatremia/hypokalemia - possibly secondary to poor intake - management per medical services Management of tongue mass per medical services Further recs will be based on his hospital course We would like to thank Dr. Deleon for this consult GRISEL KEENAN MD FACP FAC [facility] Dec 07, 2022 11:54
[2022-12-07] MEDS ORDERED: HYDROmorphone (DILAUDID) 2 MG TAB PO SCH (12:00)
[2022-12-07] MEDS: HYDROmorphone 2 MG/ML VIAL (DILAUDID) IV PRN ×2 (12:11→16:23)
--- NOTE | 2022-12-07 12:42 | Diagnostic Imaging Report ---
EXAMINATION: CT chest without contrast. TECHNIQUE: Multiple contiguous axial images were obtained through the chest without the use of intravenous contrast. All CT scans use one or more of the following dose optimizing techniques: automated exposure control, MA and/or KvP adjustment based on patient size and exam type or iterative reconstruction. HISTORY: Hyponatremia, lung cancer COMPARISON: None available. FINDINGS: There is no edema or pneumonia. No pleural effusion. No pneumothorax. No suspicious nodules. There are patchy areas of groundglass in the right lung. Left hemidiaphragm is elevated. There is no axillary or supraclavicular lymphadenopathy. There is no mediastinal lymphadenopathy. Right-sided Port-A-Cath is present. Heart size is normal. There are severe coronary artery calcifications. No pericardial effusion. Aorta is normal in caliber. There is atherosclerosis of the arch. Limited views of the upper abdomen show a gastrostomy tube. There are no suspicious osseus lesions. IMPRESSION: 1. Mild patchy areas of groundglass in the right lung suggestive of an atypical infection or drug reaction. Dictated by: Dictated on workstation # [id number]
--- NOTE | 2022-12-07 15:24 | Progress Note ---
Subjective Subjective/Events-last exam Afebrile, states he feels the same, still having severe pain in side of face. Objective Exam Last Set of Vital Signs Vital Signs Date Time Temp Pulse Resp B/P (MAP) Pulse Ox O2 Delivery O2 Flow Rate FiO2 12/07/22 15:07 Room Air 0.00 12/07/22 12:35 77 12/07/22 11:24 36.3 18 133/63 (86) 95 12/06/22 11:52 28 Capillary Refill : I&O Intake and Output 12/07/22 00:00 Intake Total 2520 ml Output Total 1175 ml Balance 1345 ml Intake Oral 460 ml IV Total 2000 ml Enteral Flush 60 ml Output Urine Total 1175 ml # Voids 3 General: Alert, No Acute Distress Lungs: Clear to Auscultation, Normal Air Movement Heart: Regular Rate, No Murmurs Neuro: Normal Speech Psych/Mental Status: Other (flat affect) Results/Procedures Lab Laboratory Tests 12/06/22 19:54: Sodium Level 129L, Potassium Level 3.5L, Chloride Level 94L, Carbon Dioxide Level 28, Anion Gap 7, Blood Urea Nitrogen 12, Creatinine 0.54L, Estimat Glomerular Filtration Rate 105, BUN/Creatinine Ratio 22, Glucose Level 139H, Calcium Level 7.6L, Thyroid Stimulating Hormone (TSH) 1.15 12/07/22 05:40: Sodium Level 131L, Potassium Level 3.3L, Chloride Level 94L, Carbon Dioxide Level 28, Anion Gap 9, Blood Urea Nitrogen 10, Creatinine 0.49L, Estimat Glomerular Filtration Rate 108, BUN/Creatinine Ratio 20, Glucose Level 100, Calcium Level 7.9L, White Blood Count 7.2, Red Blood Count 3.68L, Hemoglobin 11.6L, Hematocrit 34L, Mean Corpuscular Volume 92, Mean Corpuscular Hemoglobin 32, Mean Corpuscular Hemoglobin Concent 34, Red Cell Distribution Width 12.5, Platelet Count 183, Mean Platelet Volume 9.6, Immature Granulocyte % (Auto) 1, Neutrophils (%) (Auto) 85H, Lymphocytes (%) (Auto) 5L, Monocytes (%) (Auto) 9, Eosinophils (%) (Auto) 1, Basophils (%) (Auto) 0, Neutrophils # (Auto) 6.1, Lymphocytes # (Auto) 0.3L, Monocytes # (Auto) 0.6, Eosinophils # (Auto) 0.1, Basophils # (Auto) 0.0, Immature Granulocyte # (Auto) 0.1, Corrected Calcium 8.8, Total Bilirubin 0.5, Aspartate Amino Transf (AST/SGOT) 53H, Alanine Aminotransferase (ALT/SGPT) 29, Alkaline Phosphatase 50, Total Protein 5.1L, Albumin 2.9L Microbiology 12/05/22 Urine Culture - Final, Complete >=3 Gram Positive Isolates Radiology NAME: CHIARA REYNA [facility] REC#: [id number] PT STATUS: REG ER : 1950 PHYSICIAN: JULES TAI MD ADMIT DATE: 12/05/22/ER FS Signed Date of Exam:12/05/22 ELBOW 3 VIEW RIGHT INDICATION: Multiple recent falls over the past two weeks. Skin tear of left forearm. Pain. TECHNIQUE: 3 views of the right elbow. CORRELATION STUDY: None. FINDINGS: Small bone fragments adjacent to the lateral epicondyle and radial head may reflect a more remote injury. An acute fracture or dislocation does not appear to be present. No abnormal joint effusion; however, there is some soft tissue edema at the olecranon. No soft tissue foreign body. IMPRESSION: Negative for acute bony abnormality of the elbow. Posterior edema. Dictated by: Dictated on workstation # [id number] Dict: 12/05/22 1633 Trans: 12/05/22 1700 [facility] [id number] Interpreted by: MARY RESENDEZ DO Electronically signed by: MARY RESENDEZ DO 12/05/22 170 NAME: CHIARA REYNA [facility] REC#: [id number] PT STATUS: REG ER : 1950 PHYSICIAN: JULES TAI MD ADMIT DATE: 12/05/22/ER FS Signed Date of Exam:12/05/22 HIP 2-3 VIEW RIGHT INDICATION: Pain post fall. TECHNIQUE: Two views of the right hip. CORRELATION STUDY: None. FINDINGS: No acute fracture or dislocation. There is advanced osteoarthritic change with significant joint space narrowing. Overhanging osteophyte formation at the acetabular roof. Pubic rami intact with pubic symphysis and SI joint unremarkable. Mild vascular calcification. IMPRESSION: Negative for acute bony abnormality of the right hip. Advanced osteoarthritic degenerative change. Dictated by: Dictated on workstation # [id number] Dict: 12/05/221636 Trans: 12/05/221700 PJEj [id number] Interpreted by: MARY RESENDEZ DO Electronically signed by: MARY RESENDEZ DO 12/05/221700 NAME: CHIARA REYNA REC#: [id number] PT STATUS: REG ER : 1950 PHYSICIAN: JULES TAI MD ADMIT DATE: 12/05/22/ER FS Signed Date of Exam:12/05/22 CT HEAD WO Clinical indication: Patient with several falls at home in the past 2 weeks. Exam: Axial CT scan of the brain without IV contrast with coronal and sagittal reformatted images. Auto Exposure Controls were utilized during the CT exam to meet ALARA standards for radiation dose reduction. Comparison: None. Findings: There is skull streak artifact which obscures portions of the brainstem, posterior fossa and portions of the brain near the skull. There is no evidence of acute cerebral infarct, intracranial hemorrhage or gross mass effect. The brain parenchymal volume appears appropriate for patient's age. There is normal palomo-white matter distinction. There is no significant midline shift or herniation. There is no evidence of hydrocephalus. The basal cisterns are unremarkable. The skull, extracranial soft tissue and orbits are unremarkable. There is minimal ethmoid sinus mucosal thickening. There is a small amount of consolidation involving the left mastoid air cells. Impression: There is no CT evidence of acute intracranial process. There is no skull fracture. Dictated by: Dictated on workstation # [id number] Dict: 12/05/221635 Trans: 12/05/221708 PJE [id number] Interpreted by: GI DRAPER MD Electronically signed by: GI DRAPER MD 12/05/221708 Assessment/Plan Assessment/Plan (1) Hyponatremia Status: Acute Assessment & Plan: Improving with NS and fluid restriction, suspect hypovolemic hyponatremia due to poor intake but possible SIADH type component, discussed with Dr. Rollins, will check chest CT. (2) Recurrent falls Status: Acute Assessment & Plan: Possibly related to hyponatremia versus generalized debility. PT. (3) Uses feeding tube Status: Chronic Assessment & Plan: Resume home tube feeds. (4) Hypovolemia Status: Acute Assessment & Plan: Normal saline at 90 mls/hr currently, improving hyponatremia. (5) Atrial fibrillation Status: Acute Assessment & Plan: No known history, start enoxaparin treatment dose, TSH nml, heart rate controlled, asymptomatic. Cardiology consulted. (6) Squamous cell cancer of tongue Assessment & Plan: Followed by Dr. Rollins, patient's son reports he talked to the office today already. Will contact Dr. Rollins to make sure he is aware of hospitalization and see if further recommendations. 12/[address] Rollins, reported verbally biopsy negative for recurrent cancer. Recommended trying neuropathic pain medication in addition to opiate, will add duloxetine and gabapentin per discussion. (7) DVT prophylaxis Status: Acute Assessment & Plan: Enoxaparin LETTY MEZA MD Dec 07, 2022 15:24
[2022-12-07 15:25] VITALS: BP 128/60
[2022-12-07 19:12] VITALS: BP 148/70
[2022-12-07] MEDS: GABAPENTIN 100 MG (NEURONTIN) CAP PO SCH (20:31)
[2022-12-08 00:08] VITALS: BP 130/53
[2022-12-08] MEDS: RT-ALBUTEROL/IPRATROPIUM 3 ML (DUONEB) VIAL INH SCH ×4 (02:43→21:33)
[2022-12-08] MEDS: NS IV 1000 ML 1,000 ML IV SCH (03:09)
[2022-12-08 03:15] VITALS: BP 147/71
[2022-12-08 05:06] LABS: BASOPHILS % (AUTO) 0 % (0-10); EOSINOPHILS # (AUTO) 0.1 10^3/uL (0.0-0.3); EOSINOPHILS % (AUTO) 2 % (0-10); HEMATOCRIT 36 % (40-54); HEMOGLOBIN 12.3 g/dL (13.3-17.7); LYMPHOCYTES # (AUTO) 0.3 10^3/uL (1.0-4.0); LYMPHOCYTES % (AUTO) 4 % (12-44); MEAN CORPUSCULAR HEMOGLOBIN 32 pg (25-34); MEAN CORPUSCULAR HGB CONC 34 g/dL (32-36); MEAN CORPUSCULAR VOLUME 93 fL (80-99); MEAN PLATELET VOLUME 9.3 fL (9.0-12.2); MONOCYTES # (AUTO) 0.6 10^3/uL (0.0-1.0); MONOCYTES % (AUTO) 9 % (0-12); NEUTROPHILS # (AUTO) 5.8 10^3/uL (1.8-7.8); NEUTROPHILS % (AUTO) 84 % (42-75); PLATELET COUNT 193 10^3/uL (130-400); WHITE BLOOD COUNT 6.9 10^3/uL (4.3-11.0)
[2022-12-08 05:16] LABS: ALBUMIN 3.2 GM/DL (3.2-4.5)
[2022-12-08 05:17] LABS: POTASSIUM 3.6 MMOL/L (3.6-5.0)
[2022-12-08 05:18] LABS: CALCIUM 8.3 MG/DL (8.5-10.1)
[2022-12-08 05:19] LABS: TOTAL PROTEIN 5.7 GM/DL (6.4-8.2)
[2022-12-08 05:21] LABS: BILIRUBIN,TOTAL 0.5 MG/DL (0.1-1.0)
[2022-12-08 05:23] LABS: CREATININE SERUM 0.46 MG/DL (0.60-1.30)
[2022-12-08 07:22] VITALS: BP 138/73
[2022-12-08] MEDS: DULoxetine 30 MG (CYMBALTA) CAP PO SCH ×2 (08:26→20:46)
[2022-12-08] MEDS: ASPIRIN 81 MG CHEW (CHILDREN'S ASA) PO SCH (08:26)
[2022-12-08] MEDS: DOCUSATE SODIUM 100 MG (COLACE) CAP PO SCH ×2 (08:27→20:46)
[2022-12-08] MEDS: ENOXAPARIN 40 MG/0.4 ML (LOVENOX) SYR SQ SCH (08:27)
--- NOTE | 2022-12-08 09:26 | Progress Note - Cardiology ---
Cardiology SOAP Progress Note Subjective: Sitting up in bed No c/o n/v/d SOB is at baseline per his report No c/o CP or palpitations Objective: I&O/Vital Signs 12/08/22 12/08/22 12/08/22 12/08/22 00:08 01:00 03:15 07:09 Temp 36.4 36.1 Pulse 78 85 88 86 Resp 20 20 B/P (MAP) 130/53 (78) 147/71 (96) Pulse Ox 92 92 O2 Delivery Nasal Cannula Nasal Cannula O2 Flow Rate 4.00 4.00 4.00 4.00 12/08/22 12/08/22 07:22 07:34 Temp 36.5 Pulse 90 Resp 20 B/P (MAP) 138/73 (94) Pulse Ox 91 95 O2 Delivery Nasal Cannula Nasal Cannula O2 Flow Rate 4.00 4.00 12/08/22 00:00 Intake Total 2170 ml Output Total 850 ml Balance 1320 ml Constitutional: AAO x 3, well-developed, other (frail) Respiratory: No accessory muscle use, No respiratory distress; chest expansion is symmetric, chest is bilaterally symmetric, other (scattered wheezes throughout with prolonged exp phase; diminished throughout) Cardiovascular: regular rate-rhythm; No JVD; S1 and S2 Gastrointestional: other (PEG tube in place) Extremities: no lower extremity edema bilateral Neurologic/Psychiatric: other (moves all extremities) Skin: No rash on exposed areas, No ulcerations on exposed areas Results/Procedures: Labs Laboratory Tests 12/08/22 04:56: White Blood Count 6.9, Red Blood Count 3.89L, Hemoglobin 12.3L, Hematocrit 36L, Mean Corpuscular Volume 93, Mean Corpuscular Hemoglobin 32, Mean Corpuscular Hemoglobin Concent 34, Red Cell Distribution Width 12.5, Platelet Count 193, Mean Platelet Volume 9.3, Immature Granulocyte % (Auto) 1, Neutrophils (%) (Auto) 84H, Lymphocytes (%) (Auto) 4L, Monocytes (%) (Auto) 9, Eosinophils (%) (Auto) 2, Basophils (%) (Auto) 0, Neutrophils # (Auto) 5.8, Lymphocytes # (Auto) 0.3L, Monocytes # (Auto) 0.6, Eosinophils # (Auto) 0.1, Basophils # (Auto) 0.0, Immature Granulocyte # (Auto) 0.1, Sodium Level 130L, Potassium Level 3.6, Chloride Level 92L, Carbon Dioxide Level 29, Anion Gap 9, Blood Urea Nitrogen 6L , Creatinine 0.46L, Estimat Glomerular Filtration Rate 110, BUN/Creatinine Ratio 13, Glucose Level 111H, Calcium Level 8.3L, Corrected Calcium 8.9, Total Bilirubin 0.5, Aspartate Amino Transf (AST/SGOT) 44H, Alanine Aminotransferase (ALT/SGPT) 27, Alkaline Phosphatase 60, Total Protein 5.7L, Albumin 3.2 Microbiology 12/05/22 Urine Culture - Final, Complete >=3 Gram Positive Isolates Laboratory Tests 12/06/22 19:54 12/07/22 05:40 12/08/22 04:56 Procedures NAME: CHIARA REYNA [facility] REC#: [id number] PT STATUS: ADM Sher : 1950 PHYSICIAN: LETTY MEZA MD ADMIT DATE: 12/05/22 Signed Date of Exam:12/07/22 CT CHEST WO EXAMINATION: CT chest without contrast. TECHNIQUE: Multiple contiguous axial images were obtained through the chest without the use of intravenous contrast. All CT scans use one or more of the following dose optimizing techniques: automated exposure control, MA and/or KvP adjustment based on patient size and exam type or iterative reconstruction. HISTORY: Hyponatremia, lung cancer COMPARISON: None available. FINDINGS: There is no edema or pneumonia. No pleural effusion. No pneumothorax. No suspicious nodules. There are patchy areas of groundglass in the right lung. Left hemidiaphragm is elevated. There is no axillary or supraclavicular lymphadenopathy. There is no mediastinal lymphadenopathy. Right-sided Port-A-Cath is present. Heart size is normal. There are severe coronary artery calcifications. No pericardial effusion. Aorta is normal in caliber. There is atherosclerosis of the arch. Limited views of the upper abdomen show a gastrostomy tube. There are no suspicious osseus lesions. IMPRESSION: 1. Mild patchy areas of groundglass in the right lung suggestive of an atypical infection or drug reaction. Dictated by: Dictated on workstation # [id number] Dict: 12/07/22 1236 Trans: 12/07/22 1717 [facility] [id number] Interpreted by: GENESIS ADLER MD Electronically signed by: GENESIS ADLER MD 12/07/22 5604 A/P: Assessment: Arrhythmia - SR with PAC's on EKG's and tele COPD Tongue cancer/mass on tongue - has been following with Dr. Rollins and Dr. Huang - has had a recent bx (they are awaiting the results) - PEG tube in place since March 2022 Frequent falls - pt reports d/t poor balance - denies syncope Tobacco user - cessation advised Reports h/o HLD - managed by PCP Hyponatremia - management per medical services Hypokalemia - replace Plan: Arrhythmia - EKG's and tele strips reviewed showing SR with PAC's Management of freq, non-syncopal falls per medical services Hyponatremia - management per medical services Management of tongue mass per medical services GERRY ARCINIEGAP Dec 08, 2022 09:26
[2022-12-08 11:20] VITALS: BP 132/65
--- NOTE | 2022-12-08 11:57 | Physical Therapy Daily Note ---
PT Daily Note-Current Subjective Patient lying supine in bed upon PT arrival, agreeable to treatment. Rates pain at 0/10 currently. Patient has moderate difficulty staying awake to participate. Pain Section J - Health Conditions 1. Rarely or not at all 2. Occasionally 3. Frequently 4. Almost constantly 8. Unable to answer Pain Effect on Sleep: 1 Pain Interference with Therapy: 1 Pain Interference w/Day-to-Day: 1 Mental Status Patient Orientation: Person Transfers SCALE: Activities may be completed with or without assistive devices. 8-Rcwqxqyjeu-pgeclfs completes the activity by him/herself with no assistance from a helper. 5-Set-up or Clean-up Assistance-helper sets up or cleans up; patient completes activity. Merom assists only prior to or following the activity. 4-Supervision or Touching Assistance-helper provides verbal cues and/or touching/steadying and/or contact guard assistance as patient completes activity. Assistance may be provided throughout the activity or intermittently. 3-Partial/Moderate Assistance-helper does LESS THAN HALF the effort. Merom lifts, holds or supports trunk or limbs, but provides less than half the effort. 2-Substantial/Maximal Assistance-helper does MORE THAN HALF the effort. Merom lifts or holds trunk or limbs and provides more than half the effort. 2-Jcivsdbry-nyhypi does ALL the effort. Patient does none of the effort to complete the activity. Or, the assistance of 2 or more helpers is required for the patient to complete the activity. If activity was not attempted, code reason: 7-Patient Refused. 9-Not Applicable-not attempted and the patient did not perform the activity before the current illness, exacerbation or injury. 10-Not Attempted due to Environmental Limitations-(lack of equipment, weather restraints, etc.). 88-Not Attempted due to Medical Conditions or Safety Concerns. Roll Left & Right (QC): 4 Sit to Lying (QC): 4 Lying to Sitting/Side of Bed(Q: 4 Sit to Stand (QC): 4 Chair/Gnv-gn-Cilnr Xfer(QC): 4 Weight Bearing Right Lower Extremity: Right Full Weight Bearing Left Lower Extremity: Left Full Weight Bearing Gait Training Distance: 100 feet Walk 10 feet (QC): 4 Walk 50 ft with 2 Turns(QC): 4 Gait Persons Needed: 1 Gait Assistive Device: FWW Exercises Supine Ex: Ankle pumps, Quad Set, Glut sets Supine Reps: 20 Seated Therapy Exercises: Long arc quads, Hamstring Curls, Hip abd/add Seated Reps: 20 Assessment Current Status: Fair Progress Patient tolerated treatment well however fell asleep easily. Verbal cues to awaken, however when he was able to participate he did well. Patient performs all bed mobility and transfers with SBA. Patient ambulates 100 feet with FWW, with SBA. Patient in chair post treatment with all needs met, nursing notified, call light in hand. PT Family Intervention Specialist Goals Family Intervention Specialist Goals PT Halfway Goals Time Frame: December 18, 2022 Roll Left & Right (QC): 6 Sit to Lying (QC): 6 Lying-Sitting on Side/Bed(QC): 6 Sit to Stand (QC): 6 Chair/Sms-be-Htvnn Xfer(QC): 6 Toilet Transfer (QC): 6 Walk 10 feet (QC): 4 Walk 50ft with 2 Turns (QC): 4 Walk 150 ft (QC): 4 PT Plan Problem List Problem List: Activity Tolerance, Functional Strength, Safety, Balance, Gait, Transfer, Bed Mobility, ROM Treatment/Plan Treatment Plan: Continue Plan of Care Treatment Plan: Bed Mobility, Education, Functional Activity Ellyn, Functional Strength, Gait, Safety, Therapeutic Exercise, Transfers Treatment Duration: December 18, 2022 Frequency: 6 times per week Estimated Hrs Per Day: .25 hour per day Patient and/or Family Agrees t: Yes Safety Risks/Education Patient Education: Gait Training, Transfer Techniques Teaching Recipient: Patient Teaching Methods: Demonstration, Discussion Response to Teaching: Verbalize Understanding, Return Demonstration Time Time In: 921 Time Out: 945 DATE: Dec 08, 2022 Total Billed Treatment Time: 24 Total Billed Treatment Visit, Ex. FELICIA Jones JOHN A PT Dec 08, 2022 11:57
[2022-12-08] MEDS: HYDROmorphone (DILAUDID) 2 MG TAB PO SCH (12:23)
--- NOTE | 2022-12-08 13:21 | Progress Note - Cardiology ---
Cardiology SOAP Progress Note Subjective: No cp or palp or syncope No shortness of breathat rest No focal weakness Gen weakness present No n/v/d Objective: I&O/Vital Signs 12/08/22 12/08/22 12/08/22 12/08/22 03:15 07:09 07:22 07:34 Temp 36.1 36.5 Pulse 88 86 90 Resp 20 20 B/P (MAP) 147/71 (96) 138/73 (94) Pulse Ox 92 91 95 O2 Delivery Nasal Cannula Nasal Cannula Nasal Cannula O2 Flow Rate 4.00 4.00 4.00 4.00 12/08/22 12/08/22 12/08/22 08:00 11:20 12:56 Temp 36.5 Pulse 70 76 Resp 20 B/P (MAP) 132/65 (87) Pulse Ox 96 O2 Delivery Room Air Nasal Cannula O2 Flow Rate 4.00 12/08/22 00:00 Intake Total 2170 ml Output Total 850 ml Balance 1320 ml Constitutional: AAO x 3, well-developed, other (frail) Respiratory: No accessory muscle use, No respiratory distress; chest expansion is symmetric, chest is bilaterally symmetric, other (scattered wheezes throughout with prolonged exp phase; diminished throughout) Cardiovascular: regular rate-rhythm; No JVD; S1 and S2 Gastrointestional: other (PEG tube in place) Extremities: no lower extremity edema bilateral Neurologic/Psychiatric: other (moves all extremities) Skin: No rash on exposed areas, No ulcerations on exposed areas Results/Procedures: Labs Laboratory Tests 12/08/22 04:56: White Blood Count 6.9, Red Blood Count 3.89L, Hemoglobin 12.3L, Hematocrit 36L, Mean Corpuscular Volume 93, Mean Corpuscular Hemoglobin 32, Mean Corpuscular Hem oglobin Concent 34, Red Cell Distribution Width 12.5, Platelet Count 193, Mean Platelet Volume 9.3, Immature Granulocyte % (Auto) 1, Neutrophils (%) (Auto) 84H , Lymphocytes (%) (Auto) 4L, Monocytes (%) (Auto) 9, Eosinophils (%) (Auto) 2, Basophils (%) (Auto) 0, Neutrophils # (Auto) 5.8, Lymphocytes # (Auto) 0.3L, Monocytes # (Auto) 0.6, Eosinophils # (Auto) 0.1, Basophils # (Auto) 0.0, Immature Granulocyte # (Auto) 0.1, Sodium Level 130L, Potassium Level 3.6, Chloride Level 92L, Carbon Dioxide Level 29, Anion Gap 9, Blood Urea Nitrogen 6L , Creatinine 0.46L, Estimat Glomerular Filtration Rate 110, BUN/Creatinine Ratio 13, Glucose Level 111H, Calcium Level 8.3L, Corrected Calcium 8.9, Total Bilirubin 0.5, Aspartate Amino Transf (AST/SGOT) 44H, Alanine Aminotransferase (ALT/SGPT) 27, Alkaline Phosphatase 60, Total Protein 5.7L, Albumin 3.2 Microbiology 12/05/22 Urine Culture - Final, Complete >=3 Gram Positive Isolates Laboratory Tests 12/06/22 19:54 12/07/22 05:40 12/08/22 04:56 A/P: Assessment: Arrhythmia - SR with PAC's on EKG's and tele COPD Tongue cancer/mass on tongue - has been following with Dr. Rollins and Dr. Huang - has had a recent bx (they are awaiting the results) - PEG tube in place since March 2022 Frequent falls - pt reports d/t poor balance - denies syncope Tobacco user - cessation advised Reports h/o HLD - managed by PCP Hyponatremia - management per medical services Hypokalemia - corrected, monitor Plan: * Continue current regimen * No new CV recs at this time * Monitor labs GRISEL KEENAN MD FACP [facility] Dec 08, 2022 13:21
[2022-12-08] MEDS ORDERED: AZITHROMYCIN 250 MG TAB (ZITHROMAX) PO NR (14:30)
[2022-12-08 15:51] VITALS: BP 107/58
--- NOTE | 2022-12-08 18:45 | Progress Note ---
Subjective Subjective/Events-last exam Pt seen at 1125. States he is feeling about the same, but denies pain. He is very tired. His family is really concerned about his fall risk and debility, but also state they know he will not go to snf. Objective Exam Last Set of Vital Signs Vital Signs Date Time Temp Pulse Resp B/P (MAP) Pulse Ox O2 Delivery O2 Flow Rate FiO2 12/08/22 15:51 36.8 78 20 107/58 (74) 97 Nasal Cannula 3.00 12/06/22 11:52 28 Capillary Refill : I&O Intake and Output 12/08/22 00:00 Intake Total 2430 ml Output Total 1350 ml Balance 1080 ml Intake Oral 500 ml IV Total 1150 ml Tube Feeding 600 ml Enteral Flush 180 ml Output Urine Total 1350 ml General: Alert, No Acute Distress Lungs: Clear to Auscultation, Normal Air Movement Heart: Regular Rate, No Murmurs Psych/Mental Status: Other (flat affect) Results/Procedures Lab Laboratory Tests 12/08/22 04:56: White Blood Count 6.9, Red Blood Count 3.89L, Hemoglobin 12.3L, Hematocrit 36L, Mean Corpuscular Volume 93, Mean Corpuscular Hemoglobin 32, Mean Corpuscular Hemoglobin Concent 34, Red Cell Distribution Width 12.5, Platelet Count 193, Mean Platelet Volume 9.3, Immature Granulocyte % (Auto) 1, Neutrophils (%) (Auto) 84H, Lymphocytes (%) (Auto) 4L, Monocytes (%) (Auto) 9, Eosinophils (%) (Auto) 2, Basophils (%) (Auto) 0, Neutrophils # (Auto) 5.8, Lymphocytes # (Auto) 0.3L, Monocytes # (Auto) 0.6, Eosinophils # (Auto) 0.1, Basophils # (Auto) 0.0, Immature Granulocyte # (Auto) 0.1, Sodium Level 130L, Potassium Level 3.6, Chloride Level 92L, Carbon Dioxide Level 29, Anion Gap 9, Blood Urea Nitrogen 6L , Creatinine 0.46L, Estimat Glomerular Filtration Rate 110, BUN/Creatinine Ratio 13, Glucose Level 111H, Calcium Level 8.3L, Corrected Calcium 8.9, Total Bi lirubin 0.5, Aspartate Amino Transf (AST/SGOT) 44H, Alanine Aminotransferase (ALT/SGPT) 27, Alkaline Phosphatase 60, Total Protein 5.7L, Albumin 3.2 Microbiology 12/05/22 Urine Culture - Final, Complete >=3 Gram Positive Isolates Radiology NAME: CHIARA REYNA [facility] REC#: [id number] PT STATUS: REG ER : 1950 PHYSICIAN: JULES TAI MD ADMIT DATE: 12/05/22/ER FS Signed Date of Exam:12/05/22 ELBOW 3 VIEW RIGHT INDICATION: Multiple recent falls over the past two weeks. Skin tear of left forearm. Pain. TECHNIQUE: 3 views of the right elbow. CORRELATION STUDY: None. FINDINGS: Small bone fragments adjacent to the lateral epicondyle and radial head may reflect a more remote injury. An acute fracture or dislocation does not appear to be present. No abnormal joint effusion; however, there is some soft tissue edema at the olecranon. No soft tissue foreign body. IMPRESSION: Negative for acute bony abnormality of the elbow. Posterior edema. Dictated by: Dictated on workstation # [id number] Dict: 12/05/22 1633 Trans: 12/05/22 170 PJE [id number] Interpreted by: MARY RESENDEZ DO Electronically signed by: MAYR RESENDEZ DO 12/05/221699 NAME: CHIARA REYNA [facility] REC#: [id number] PT STATUS: REG ER : 1950 PHYSICIAN: JULES TAI MD ADMIT DATE: 12/05/22/ER FS Signed Date of Exam:12/05/22 HIP 2-3 VIEW RIGHT INDICATION: Pain post fall. TECHNIQUE: Two views of the right hip. CORRELATION STUDY: None. FINDINGS: No acute fracture or dislocation. There is advanced osteoarthritic change with significant joint space narrowing. Overhanging osteophyte formation at the acetabular roof. Pubic rami intact with pubic symphysis and SI joint unremarkable. Mild vascular calcification. IMPRESSION: Negative for acute bony abnormality of the right hip. Advanced osteoarthritic degenerative change. Dictated by: Dictated on workstation # [id number] Dict: 12/05/22 1637 Trans: 12/05/22 170 PJE [id number] Interpreted by: MARY RESENDEZ DO Electronically signed by: MARY RESENDEZ DO 12/05/22 1701 NAME: CHIARA REYNA [facility] REC#: [id number] PT STATUS: REG ER : 1950 PHYSICIAN: JULES TAI MD ADMIT DATE: 12/05/22/ER FS Signed Date of Exam:12/05/22 CT HEAD WO Clinical indication: Patient with several falls at home in the past 2 weeks. Exam: Axial CT scan of the brain without IV contrast with coronal and sagittal reformatted images. Auto Exposure Controls were utilized during the CT exam to meet ALARA standards for radiation dose reduction. Comparison: None. Findings: There is skull streak artifact which obscures portions of the brainstem, posterior fossa and portions of the brain near the skull. There is no evidence of acute cerebral infarct, intracranial hemorrhage or gross mass effect. The brain parenchymal volume appears appropriate for patient's age. There is normal palomo-white matter distinction. There is no significant midline shift or herniation. There is no evidence of hydrocephalus. The basal cisterns are unremarkable. The skull, extracranial soft tissue and orbits are unremarkable. There is minimal ethmoid sinus mucosal thickening. There is a small amount of consolidation involving the left mastoid air cells. Impression: There is no CT evidence of acute intracranial process. There is no skull fracture. Dictated by: Dictated on workstation # [id number] Dict: 12/05/22 1636 Trans: 12/05/221708 [facility] [id number] Interpreted by: GI DRAPER MD Electronically signed by: GI DRAPER MD 12/05/22 1709 Assessment/Plan Assessment/Plan (1) Hyponatremia Status: Acute Assessment & Plan: Improving with NS and fluid restriction, suspect hypovolemic hyponatremia due to poor intake but possible SIADH type component, discussed with Dr. Rollins, will check chest CT. 12/[address] with findings of atypical pneumonia or medication effect (2) Recurrent falls Status: Acute Assessment & Plan: Possibly related to hyponatremia versus generalized debility. PT. (3) Uses feeding tube Status: Chronic Assessment & Plan: Resume home tube feeds. (4) Hypovolemia Status: Acute Assessment & Plan: Normal saline at 90 mls/hr currently, improving hyponatremia. 12/08 stop IVF, continue to encourage oral intake, discussed trying to find what is the least distasteful and focus on expanding from there per Dr. Rollins recommendations. (5) Squamous cell cancer of tongue Assessment & Plan: Followed by Dr. Rollins, patient's son reports he talked to the office today already. Will contact Dr. Rollins to make sure he is aware of hospitalization and see if further recommendations. 12/[address] Rollins, reported verbally biopsy negative for recurrent cancer. Recommended trying neuropathic pain medication in addition to opiate, will add duloxetine and gabapentin per discussion. (6) Atypical pneumonia Status: Acute Assessment & Plan: Azithromycin (7) Irregular heart beat Status: Acute Assessment & Plan: Appreciate Cardiology recommendations, not suspected to be a fib. (8) Hypoxia Status: Acute Assessment & Plan: Uncertain etiology, starting azithromycin for atypical pneumonia. Possibly atalectasis and poor mobility related as well. (9) DVT prophylaxis Status: Acute Assessment & Plan: Enoxaparin LETTY MEZA MD Dec 08, 2022 18:45
[2022-12-08 19:31] VITALS: BP 155/76
[2022-12-08] MEDS: GABAPENTIN 100 MG (NEURONTIN) CAP PO SCH (20:46)
[2022-12-09] VITALS: BP 128/59
[2022-12-09] MEDS: RT-ALBUTEROL/IPRATROPIUM 3 ML (DUONEB) VIAL INH SCH ×4 (03:10→19:20)
[2022-12-09 04:00] VITALS: BP 122/58
[2022-12-09 06:12] LABS: BASOPHILS % (AUTO) 0 % (0-10); EOSINOPHILS # (AUTO) 0.2 10^3/uL (0.0-0.3); EOSINOPHILS % (AUTO) 2 % (0-10); HEMATOCRIT 35 % (40-54); HEMOGLOBIN 11.6 g/dL (13.3-17.7); LYMPHOCYTES # (AUTO) 0.3 10^3/uL (1.0-4.0); LYMPHOCYTES % (AUTO) 5 % (12-44); MEAN CORPUSCULAR HEMOGLOBIN 31 pg (25-34); MEAN CORPUSCULAR HGB CONC 34 g/dL (32-36); MEAN CORPUSCULAR VOLUME 94 fL (80-99); MEAN PLATELET VOLUME 9.6 fL (9.0-12.2); MONOCYTES # (AUTO) 0.6 10^3/uL (0.0-1.0); MONOCYTES % (AUTO) 9 % (0-12); NEUTROPHILS # (AUTO) 5.6 10^3/uL (1.8-7.8); NEUTROPHILS % (AUTO) 83 % (42-75); PLATELET COUNT 170 10^3/uL (130-400); WHITE BLOOD COUNT 6.8 10^3/uL (4.3-11.0)
[2022-12-09 06:23] LABS: ALBUMIN 3.1 GM/DL (3.2-4.5); POTASSIUM 3.9 MMOL/L (3.6-5.0)
[2022-12-09 06:25] LABS: CALCIUM 8.5 MG/DL (8.5-10.1)
[2022-12-09 06:26] LABS: TOTAL PROTEIN 5.5 GM/DL (6.4-8.2)
[2022-12-09 06:28] LABS: BILIRUBIN,TOTAL 0.4 MG/DL (0.1-1.0)
[2022-12-09 06:29] LABS: CREATININE SERUM 0.44 MG/DL (0.60-1.30)
[2022-12-09 07:28] VITALS: BP 144/68
[2022-12-09] MEDS: AZITHROMYCIN 250 MG TAB (ZITHROMAX) PO SCH (08:50)
[2022-12-09] MEDS: ASPIRIN 81 MG CHEW (CHILDREN'S ASA) PO SCH (08:50)
[2022-12-09] MEDS: ENOXAPARIN 40 MG/0.4 ML (LOVENOX) SYR SQ SCH (08:51)
[2022-12-09] MEDS: DOCUSATE SODIUM 100 MG (COLACE) CAP PO SCH ×2 (08:51→20:17)
[2022-12-09] MEDS: DULoxetine 30 MG (CYMBALTA) CAP PO SCH ×2 (08:51→20:17)
--- NOTE | 2022-12-09 10:05 | Progress Note ---
Subjective Subjective/Events-last exam Pain still present, not any better. States he is doing fine with drinking fluids. Objective Exam Last Set of Vital Signs Vital Signs Date Time Temp Pulse Resp B/P (MAP) Pulse Ox O2 Delivery O2 Flow Rate FiO2 12/09/22 08:00 Nasal Cannula 2.00 12/09/22 07:28 36.2 74 18 144/68 (93) 95 12/06/22 11:52 28 Capillary Refill : I&O Intake and Output 12/09/22 00:00 Intake Total 1730 ml Output Total 1350 ml Balance 380 ml Intake Oral 610 ml IV Total 1000 ml Enteral Flush 120 ml Output Urine Total 1350 ml General: Alert, No Acute Distress Lungs: Clear to Auscultation, Normal Air Movement Heart: Regular Rate Abdomen: Normal Bowel Sounds, Soft Neuro: Normal Speech Psych/Mental Status: Other (flat affect) Results/Procedures Lab Laboratory Tests 12/09/22 05:45: White Blood Count 6.8, Red Blood Count 3.69L, Hemoglobin 11.6L, Hematocrit 35L, Mean Corpuscular Volume 94, Mean Corpuscular Hemoglobin 31, Mean Corpuscular Hemoglobin Concent 34, Red Cell Distribution Width 12.4, Platelet Count 170, Mean Platelet Volume 9.6, Immature Granulocyte % (Auto) 1, Neutrophils (%) (Aut o) 83H, Lymphocytes (%) (Auto) 5L, Monocytes (%) (Auto) 9, Eosinophils (%) (Auto) 2, Basophils (%) (Auto) 0, Neutrophils # (Auto) 5.6, Lymphocytes # (Auto) 0.3L, Monocytes # (Auto) 0.6, Eosinophils # (Auto) 0.2, Basophils # (Auto) 0.0, Immature Granulocyte # (Auto) 0.1, Sodium Level 126L, Potassium Level 3.9, Chloride Level 87L, Carbon Dioxide Level 30, Anion Gap 9, Blood Urea Nitrogen 8, Creatinine 0.44L, Estimat Glomerular Filtration Rate 112, BUN/Creatinine Ratio 18, Glucose Level 111H, Calcium Level 8.5, Corrected Calcium 9.2, Total Bilirubin 0.4, Aspartate Amino Transf (AST/SGOT) 32, Alanine Aminotransferase (ALT/SGPT) 27, Alkaline Phosphatase 57, Total Protein 5.5L, Albumin 3.1L Microbiology 12/05/22 Urine Culture - Final, Complete >=3 Gram Positive Isolates Radiology NAME: CHIARA REYNA [facility] REC#: [id number] PT STATUS: REG ER : 1950 PHYSICIAN: JULES TAI MD ADMIT DATE: 12/05/22/ER FS Signed Date of Exam:12/05/22 ELBOW 3 VIEW RIGHT INDICATION: Multiple recent falls over the past two weeks. Skin tear of left forearm. Pain. TECHNIQUE: 3 views of the right elbow. CORRELATION STUDY: None. FINDINGS: Small bone fragments adjacent to the lateral epicondyle and radial head may reflect a more remote injury. An acute fracture or dislocation does not appear to be present. No abnormal joint effusion; however, there is some soft tissue edema at the olecranon. No soft tissue foreign body. IMPRESSION: Negative for acute bony abnormality of the elbow. Posterior edema. Dictated by: Dictated on workstation # [id number] Dict: 12/05/22 1633 Trans: 12/05/221699 PJE [id number] Interpreted by: MARY RESENDEZ DO Electronically signed by: MARY RESENDEZ DO 12/05/221699 NAME: CHIARA REYNA [facility] REC#: [id number] PT STATUS: REG ER : 1950 PHYSICIAN: JULES TAI MD ADMIT DATE: 12/05/22/ER FS Signed Date of Exam:12/05/22 HIP 2-3 VIEW RIGHT INDICATION: Pain post fall. TECHNIQUE: Two views of the right hip. CORRELATION STUDY: None. FINDINGS: No acute fracture or dislocation. There is advanced osteoarthritic change with significant joint space narrowing. Overhanging osteophyte formation at the acetabular roof. Pubic rami intact with pubic symphysis and SI joint unremarkable. Mild vascular calcification. IMPRESSION: Negative for acute bony abnormality of the right hip. Advanced osteoarthritic degenerative change. Dictated by: Dictated on workstation # [id number] Dict: 12/05/22 1637 Trans: 12/05/221700 PJE [id number] Interpreted by: MARY RESENDEZ DO Electronically signed by: MARY RESENDEZ DO 12/05/221700 NAME: CHIARA REYNA REC#: [id number] PT STATUS: REG ER : 1950 PHYSICIAN: JULES TAI MD ADMIT DATE: 12/05/22/ER FS Signed Date of Exam:12/05/22 CT HEAD WO Clinical indication: Patient with several falls at home in the past 2 weeks. Exam: Axial CT scan of the brain without IV contrast with coronal and sagittal reformatted images. Auto Exposure Controls were utilized during the CT exam to meet ALARA standards for radiation dose reduction. Comparison: None. Findings: There is skull streak artifact which obscures portions of the brainstem, posterior fossa and portions of the brain near the skull. There is no evidence of acute cerebral infarct, intracranial hemorrhage or gross mass effect. The brain parenchymal volume appears appropriate for patient's age. There is normal palomo-white matter distinction. There is no significant midline shift or herniation. There is no evidence of hydrocephalus. The basal cisterns are unremarkable. The skull, extracranial soft tissue and orbits are unremarkable. There is minimal ethmoid sinus mucosal thickening. There is a small amount of consolidation involving the left mastoid air cells. Impression: There is no CT evidence of acute intracranial process. There is no skull fracture. Dictated by: Dictated on workstation # [id number] Dict: 12/05/221635 Trans: 12/05/221708 [facility] [id number] Interpreted by: GI DRAPER MD Electronically signed by: GI DRAPER MD 12/05/221708 Assessment/Plan Assessment/Plan (1) Hyponatremia Status: Acute Assessment & Plan: Improving with NS and fluid restriction, suspect hypovolemic hyponatremia due to poor intake but possible SIADH type component, discussed with Dr. Rollins, will check chest CT. 12/[address] with findings of atypical pneumonia or medication effect 12/09 worsened after stopping continuous IVF. Will treat with hypertonic saline, and may need to start salt tabs after given persistent drop. (2) Recurrent falls Status: Acute Assessment & Plan: Possibly related to hyponatremia versus generalized debilit y. PT. (3) Uses feeding tube Status: Chronic Assessment & Plan: Resume home tube feeds. (4) Hypovolemia Status: Acute Assessment & Plan: Normal saline at 90 mls/hr currently, improving hyponatremia. 12/08 stop IVF, continue to encourage oral intake, discussed trying to find what is the least distasteful and focus on expanding from there per Dr. Rollins recommendations. (5) Squamous cell cancer of tongue Assessment & Plan: Followed by Dr. Rollins, patient's son reports he talked to the office today already. Will contact Dr. Rollins to make sure he is aware of hospitalization and see if further recommendations. 12/[address] Rollins, reported verbally biopsy negative for recurrent cancer. Recommended trying neuropathic pain medication in addition to opiate, will add duloxetine and gabapentin per discussion. (6) Atypical pneumonia Status: Acute Assessment & Plan: Azithromycin (7) Irregular heart beat Status: Acute Assessment & Plan: Appreciate Cardiology recommendations, not suspected to be a fib. (8) Hypoxia Status: Acute Assessment & Plan: Uncertain etiology, starting azithromycin for atypical pneumonia. Possibly atalectasis and poor mobility related as well. (9) DVT prophylaxis Status: Acute Assessment & Plan: Enoxaparin LETTY MEZA MD Dec 09, 2022 10:05
[2022-12-09] MEDS ORDERED: SODIUM CHLORIDE 3% 500 ML IV SCH ×2 (10:15→21:15)
[2022-12-09] MEDS: HYDROmorphone (DILAUDID) 2 MG TAB PO SCH (11:05)
[2022-12-09 11:59] VITALS: BP 132/65
--- NOTE | 2022-12-09 13:27 | Progress Note - Cardiology ---
Cardiology SOAP Progress Note Subjective: Gen malaise No focal weakness No cp or palp or syncope No n/v/d No shortness of breath at rest Objective: I&O/Vital Signs 12/09/22 12/09/22 12/09/22 12/09/22 03:10 04:00 07:09 07:28 Temp 36.2 36.2 Pulse 76 74 Resp 18 18 B/P (MAP) 122/58 (79) 144/68 (93) Pulse Ox 94 98 98 95 O2 Delivery Nasal Cannula Nasal Cannula Nasal Cannula Nasal Cannula O2 Flow Rate 3.00 3.00 3.00 3.00 12/09/22 12/09/22 12/09/22 12/09/22 08:00 08:49 11:59 12:56 Temp 36.7 Pulse 73 69 72 Resp 18 B/P (MAP) 132/65 (87) Pulse Ox 97 O2 Delivery Nasal Cannula Nasal Cannula O2 Flow Rate 2.00 3.00 12/08/22 23:59 Intake Total 1470 ml Output Total 850 ml Balance 620 ml Constitutional: AAO x 3, well-developed, other (frail) Respiratory: No accessory muscle use, No respiratory distress; chest expansion is symmetric, chest is bilaterally symmetric, other (scattered wheezes throughout with prolonged exp phase; diminished throughout) Cardiovascular: regular rate-rhythm; No JVD; S1 and S2 Gastrointestional: other (PEG tube in place) Extremities: no lower extremity edema bilateral Neurologic/Psychiatric: other (moves all extremities) Skin: No rash on exposed areas, No ulcerations on exposed areas Results/Procedures: Labs Laboratory Tests 12/09/22 05:45: White Blood Count 6.8, Red Blood Count 3.69L, Hemoglobin 11.6L, Hematocrit 35L, Mean Corpuscular Volume 94, Mean Corpuscular Hemoglobin 31, Mean Corpuscular Hemoglobin Concent 34, Red Cell Distribution Width 12.4, Platelet Count 170, Mean Platelet Volume 9.6, Immature Granulocyte % (Auto) 1, Neutrophils (%) (Auto) 83H, Lymphocytes (%) (Auto) 5L, Monocytes (%) (Auto) 9, Eosinophils (%) (Auto) 2, Basophils (%) (Auto) 0, Neutrophils # (Auto) 5.6, Lymphocytes # (Auto) 0.3L, Monocytes # (Auto) 0.6, Eosinophils # (Auto) 0.2, Basophils # (Auto) 0.0, Immature Granulocyte # (Auto) 0.1, Sodium Level 126L, Potassium Level 3.9, Chloride Level 87L, Carbon Dioxide Level 30, Anion Gap 9, Blood Urea Nitrogen 8, Creatinine 0.44L, Estimat Glomerular Filtration Rate 112, BUN/Creatinine Ratio 18, Glucose Level 111H, Calcium Level 8.5, Corrected Calcium 9.2, Total Bilirubin 0.4, Aspartate Amino Transf (AST/SGOT) 32, Alanine Aminotransferase (ALT/SGPT) 27, Alkaline Phosphatase 57, Total Protein 5.5L, Albumin 3.1L Microbiology 12/05/22 Urine Culture - Final, Complete >=3 Gram Positive Isolates Laboratory Tests 12/08/22 04:56 12/09/22 05:45 A/P: Assessment: Arrhythmia - SR with PAC's on EKG's and tele COPD Tongue cancer/mass on tongue - has been following with Dr. Rollins and Dr. Huang - has had a recent bx (they are awaiting the results) - PEG tube in place since March 2022 Frequent falls - pt reports d/t poor balance - denies syncope Tobacco user - cessation advised Reports h/o HLD - managed by PCP Hyponatremia - management per medical services Hypokalemia - corrected, monitor Plan: * Continue current regimen * Monitor labs * We will sign off because cardiac status is clinically stable. Please recall if needed GRISEL KEENAN MD FACP [facility] Dec 09, 2022 13:27
[2022-12-09 14:26] LABS: CALCIUM 8.5 MG/DL (8.5-10.1)
[2022-12-09 14:31] LABS: CREATININE SERUM 0.45 MG/DL (0.60-1.30)
[2022-12-09 15:44] VITALS: BP 114/60
[2022-12-09 19:25] VITALS: BP 140/73
[2022-12-09] MEDS ORDERED: GABAPENTIN 300 MG (NEURONTIN) CAP PO SCH (21:00)
[2022-12-09] MEDS ORDERED: GABAPENTIN 100 MG (NEURONTIN) CAP PO SCH (21:00)
[2022-12-10] VITALS: BP 149/70
[2022-12-10] MEDS: RT-ALBUTEROL/IPRATROPIUM 3 ML (DUONEB) VIAL INH SCH ×2 (02:56→07:31)
[2022-12-10 03:46] LABS: BASOPHILS % (AUTO) 0 % (0-10); EOSINOPHILS # (AUTO) 0.1 10^3/uL (0.0-0.3); EOSINOPHILS % (AUTO) 2 % (0-10); HEMATOCRIT 34 % (40-54); HEMOGLOBIN 11.4 g/dL (13.3-17.7); LYMPHOCYTES # (AUTO) 0.3 10^3/uL (1.0-4.0); LYMPHOCYTES % (AUTO) 4 % (12-44); MEAN CORPUSCULAR HEMOGLOBIN 31 pg (25-34); MEAN CORPUSCULAR HGB CONC 33 g/dL (32-36); MEAN CORPUSCULAR VOLUME 94 fL (80-99); MEAN PLATELET VOLUME 9.6 fL (9.0-12.2); MONOCYTES # (AUTO) 0.6 10^3/uL (0.0-1.0); MONOCYTES % (AUTO) 9 % (0-12); NEUTROPHILS # (AUTO) 5.6 10^3/uL (1.8-7.8); NEUTROPHILS % (AUTO) 84 % (42-75); PLATELET COUNT 194 10^3/uL (130-400); WHITE BLOOD COUNT 6.6 10^3/uL (4.3-11.0)
[2022-12-10 04:00] VITALS: BP 158/69
[2022-12-10 04:00] LABS: ALBUMIN 3.4 GM/DL (3.2-4.5); POTASSIUM 3.9 MMOL/L (3.6-5.0)
[2022-12-10 04:01] LABS: CALCIUM 8.7 MG/DL (8.5-10.1)
[2022-12-10 04:03] LABS: TOTAL PROTEIN 5.8 GM/DL (6.4-8.2)
[2022-12-10 04:04] LABS: BILIRUBIN,TOTAL 0.5 MG/DL (0.1-1.0)
[2022-12-10 04:06] LABS: CREATININE SERUM 0.45 MG/DL (0.60-1.30)
[2022-12-10 07:27] VITALS: BP 160/73
--- NOTE | 2022-12-10 10:13 | Physical Therapy Daily Note ---
PT Daily Note-Current Subjective Patient agrees to PT. Pain Section J - Health Conditions 1. Rarely or not at all 2. Occasionally 3. Frequently 4. Almost constantly 8. Unable to answer Pain Effect on Sleep: 1 Pain Interference with Therapy: 1 Pain Interference w/Day-to-Day: 1 Mental Status Patient Orientation: Normal For Age Attachments: Oxygen Transfers SCALE: Activities may be completed with or without assistive devices. 1-Yanovlhhoi-mgnrstk completes the activity by him/herself with no assistance from a helper. 5-Set-up or Clean-up Assistance-helper sets up or cleans up; patient completes activity. [place]vier assists only prior to or following the activity. 4-Supervision or Touching Assistance-helper provides verbal cues and/or touching/steadying and/or contact guard assistance as patient completes activity. Assistance may be provided throughout the activity or intermittently. 3-Partial/Moderate Assistance-helper does LESS THAN HALF the effort. Sevier lifts, holds or supports trunk or limbs, but provides less than half the effort. 2-Substantial/Maximal Assistance-helper does MORE THAN HALF the effort. Sevier lifts or holds trunk or limbs and provides more than half the effort. 8-Aiifcljzn-tblgyy does ALL the effort. Patient does none of the effort to complete the activity. Or, the assistance of 2 or more helpers is required for the patient to complete the activity. If activity was not attempted, code reason: 7-Patient Refused. 9-Not Applicable-not attempted and the patient did not perform the activity before the current illness, exacerbation or injury. 10-Not Attempted due to Environmental Limitations-(lack of equipment, weather restraints, etc.). 88-Not Attempted due to Medical Conditions or Safety Concerns. Sit to Stand (QC): 4 Weight Bearing Right Lower Extremity: Right Full Weight Bearing Left Lower Extremity: Left Full Weight Bearing Gait Training Distance: 350' Walk 10 feet (QC): 4 Walk 50 ft with 2 Turns(QC): 4 Walk 150 ft (QC): 4 Gait Assistive Device: FWW VC's for body placement in FWW with noted extended UE's. Safe and functional gait sequence Assessment Patient remains up in recliner with needs met. Patient much improved on this date. PT to continue to increase activity as tolerated by patient. PT [employer] Goals Group Home Goals PT Group Home Goals Time Frame: December 18, 2022 Roll Left & Right (QC): 6 Sit to Lying (QC): 6 Lying-Sitting on Side/Bed(QC): 6 Sit to Stand (QC): 6 Chair/Zzb-sw-Wsjkr Xfer(QC): 6 Toilet Transfer (QC): 6 Walk 10 feet (QC): 4 Walk 50ft with 2 Turns (QC): 4 Walk 150 ft (QC): 4 PT Plan Treatment/Plan Treatment Plan: Continue Plan of Care Treatment Plan: Bed Mobility, Education, Functional Activity Ellyn, Functional Strength, Gait, Safety, Therapeutic Exercise, Transfers Treatment Duration: December 18, 2022 Frequency: 6 times per week Estimated Hrs Per Day: .25 hour per day Patient and/or Family Agrees t: Yes Time Time In: 855 Time Out: 905 DATE: Dec 10, 2022 Total Billed Treatment Time: 10 Total Billed Treatment 1 visit GT 10 min LORAINE CAMEJO PT Dec 10, 2022 10:13
[2022-12-10] MEDS: ASPIRIN 81 MG CHEW (CHILDREN'S ASA) PO SCH (10:35)
[2022-12-10] MEDS: DULoxetine 30 MG (CYMBALTA) CAP PO SCH (10:35)
[2022-12-10] MEDS: DOCUSATE SODIUM 100 MG (COLACE) CAP PO SCH (10:35)
[2022-12-10] MEDS: AZITHROMYCIN 250 MG TAB (ZITHROMAX) PO SCH (10:35)
[2022-12-10] MEDS: ENOXAPARIN 40 MG/0.4 ML (LOVENOX) SYR SQ SCH (10:35)
[2022-12-10 11:39] VITALS: BP 155/72
[2022-12-10] MEDS ORDERED: SODI100047 MC (11:57)
[2022-12-10] MEDS ORDERED: Gabapentin PO (11:57)
[2022-12-10] MEDS ORDERED: AZIT250T12 PO (11:57)
[2022-12-10] MEDS ORDERED: DULO30CA3 PO (11:57)
--- NOTE | 2022-12-10 11:58 | Discharge Summary ---
Discharge Summary Hospital Course Problems/Diagnosis: (1) Hyponatremia Status: Acute Assessment & Plan: Improving with NS and fluid restriction, suspect hypovolemic hyponatremia due to poor intake but possible SIADH type component, discussed with Dr. Rollins, will check chest CT. 12/[address] with findings of atypical pneumonia or medication effect 12/09 worsened after stopping continuous IVF. Will treat with hypertonic saline, and may need to start salt tabs after given persistent drop. 12/10 salt tabs prescribed on d/c, follow up with primary for continued managemeent. (2) Recurrent falls Status: Acute Assessment & Plan: Possibly related to hyponatremia versus generalized debility. PT with home health, declined SNF placement. (3) Uses feeding tube Status: Chronic Assessment & Plan: Resumed home tube feeds. (4) Hypovolemia Status: Resolved Resolution Date/Time: 12/10/22 @ 14:56 Assessment & Plan: Normal saline at 90 mls/hr currently, improving hyponatremia. 12/08 stop IVF, continue to encourage oral intake, discussed trying to find what is the least distasteful and focus on expanding from there per Dr. Rollins recommendations. (5) Squamous cell cancer of tongue Assessment & Plan: Followed by Dr. Rollins, patient's son reports he talked to the office today already. Will contact Dr. Rollins to make sure he is aware of hospitalization and see if further recommendations. 12/[address] Rollins, reported verbally biopsy negative for recurrent cancer. Recommended trying neuropathic pain medication in addition to opiate, will add duloxetine and gabapentin per discussion. (6) Atypical pneumonia Status: Acute Assessment & Plan: Azithromycin (7) Irregular heart beat Status: Acute Assessment & Plan: Appreciate Cardiology recommendations, not suspected to be a fib. (8) Hypoxia Status: Acute Assessment & Plan: Uncertain etiology, starting azithromycin for atypical pneumonia. Possibly atalectasis and poor mobility related as well. Supplemental oxygen prescribed for home use. Hospital Course Date of Admission: Dec 05, 2022 at 19:35 Admission Diagnosis : Family Physician/Provider: Navid Ryan MD Date of Discharge: 12/10/22 Discharge Diagnosis: See problem list Hospital Course: See problem list Labs and Pending Lab Test: Laboratory Tests 12/09/22 14:00: Sodium Level 128L, Potassium Level 4.0, Chloride Level 86L, Carbon Dioxide Level 34H, Anion Gap 8, Blood Urea Nitrogen 7, Creatinine 0.45L, Estimat Glomerular Filtration Rate 111, BUN/Creatinine Ratio 16, Glucose Level 117H, Calcium Level 8.5 12/10/22 03:35: Sodium Level 129L, Potassium Level 3.9, Chloride Level 86L, Carbon Dioxide Level 32, Anion Gap 11, Blood Urea Nitrogen 8, Creatinine 0.45L, Estimat Glomerular Filtration Rate 111, BUN/Creatinine Ratio 18, Glucose Level 108H, Calcium Level 8.7, White Blood Count 6.6, Red Blood Count 3.64L, Hemoglobin 11.4L, Hematocrit 34L, Mean Corpuscular Volume 94, Mean Corpuscular Hemoglobin 31, Mean Corpuscular Hemoglobin Concent 33, Red Cell Distribution Width 12.4, Platelet Count 194, Mean Platelet Volume 9.6, Immature Granulocyte % (Auto) 1, Neutrophils (%) (Auto) 84H, Lymphocytes (%) (Auto) 4L, Monocytes (%) (Auto) 9, Eosinophils (%) (Auto) 2, Basophils (%) (Auto) 0, Neutrophils # (Auto) 5.6, Lymphocytes # (Auto) 0.3L, Monocytes # (Auto) 0.6, Eosinophils # (Auto) 0.1, Basophils # (Auto) 0.0, Immature Granulocyte # (Auto) 0.0, Corrected Calcium 9.2, Total Bilirubin 0.5, Aspartate Amino Transf (AST/SGOT) 27, Alanine Aminotransferase (ALT/SGPT) 28, Alkaline Phosphatase 63, Total Protein 5.8L, Albumin 3.4 Microbiology 12/05/22 Urine Culture - Final, Complete >=3 Gram Positive Isolates Home Meds Active Sodium Chloride 1,000 Mg Tablet.colby 3,000 Mg MC TID Cymbalta (Duloxetine HCl) 30 Mg Capsule.dr 30 Mg PO BID [Gabapentin] 300 MG Cap 300 Mg PO HS Azithromycin 250 Mg Tablet 250 Mg PO DAILY Reported Dilaudid (Hydromorphone HCl) 2 Mg Tablet 2 Mg PO 1200 Assessment/Pt DC Instructions Follow up with primary within a week of discharge. Follow up with Dr. Rollins as directed. Get labs drawn Tuesday to follow up electrolytes. Discharge Diet: Other Diet (liberalize salt, less than 1000 ml fluid) Activity as Tolerated: Yes Discharge Physical Examination Allergies: Coded Allergies: No Known Drug Allergies (Unverified , 05/27/22) General Appearance: No Apparent Distress Respiratory: Lungs Clear, Normal Breath Sounds Cardiovascular: Regular Rate, Rhythm, No Murmur Skin: Warm/Dry Neurologic/Psychiatric: Alert, Other (flat affect) LETTY MEZA MD Dec 10, 2022 11:58
--- NOTE | 2022-12-10 12:01 | D/C HH Face to Face Order ---
D/C Face to Face Orders Reconcile Patient Problems Problems Reviewed?: Yes Instructions for Patient Patient Instructions/FollowUp: Follow up with primary doctor within a week. Follow up with Dr. Rollins as directed. Have labs drawn ([facility]) on Tuesday. Physician to follow Patient: [facility] Discharge Diet for Home: other diet (liberalize salt, limit fluid to 1000 ml, continue tube feedings, 5 cans per day) Patient Problems: Hyponatremia Weakness Frequent falls History of squamous cell carcinoma of tongue Feeding tube in place Patient Data-Allergies,Ht & Wt Patient Allergies: Coded Allergies: No Known Drug Allergies (Unverified , 05/27/22) Home Health Need/Face to Face Date of Face to Face: Dec 10, 2022 Clinical Findings: Generalized weakness and fatigue I have seen Pt [id number]: Yes Discharged To: Home Diagnosis/Conditions: See patient problems Patient is Homebound due to: Patrica fall risk due to instabilty Homebound Status Due to the above stated illness, injury or surgical procedure (medical condition or diagnosis) and associated clinical findings, the patient is homebound because of his/her inability to leave home except with aid of a supportive device and/or person AND leaving the home requires a considerable and taxing effort or is medically contraindicated. Pt req the following assistanc: [facility] Nursing Orders Home Health Services Order: Nursing Services, Physical Therapy-Evaluate & Treat Home Health Infusion Therapy Line Start Date: Dec 05, 2022 Certify Stmt I certify that this patient is under my care and that I, a nurse practitioner or a physician; a assistant plant controller working with me, had a face to face encounter that - meets the physician face to face encounter requirements with this patient as dated. LETTY MEZA MD Dec 10, 2022 12:01
[2022-12-10 13:10] VITALS: BP 155/72
== END 2022-12-10 13:10 | disposition home health service (06) ==
LOC: EDUNIT# 15:47 → ER FS 15:49 → 4TH 19:35
PROVIDERS: ADMIT Internal Medicine; ATTEND Family Medicine
DX: E87.1 Hypo-osmolality and hyponatremia (principal); R29.6 Repeated falls; E86.1 Hypovolemia; C02.9 Malignant neoplasm of tongue, unspecified; J18.8 Other pneumonia, unspecified organism; R09.02 Hypoxemia; I49.9 Cardiac arrhythmia, unspecified; I48.91 Unspecified atrial fibrillation; J44.9 Chronic obstructive pulmonary disease, unspecified; E78.5 Hyperlipidemia, unspecified; E86.0 Dehydration; E87.6 Hypokalemia; F17.210 Nicotine dependence, cigarettes, uncomplicated; Z93.1 Gastrostomy status
CPT/HCPCS: 36415; 70450; 71250; 73080; 73502; 80048 ×2; 80053 ×6; 81000; 82947; 83735; 84295; 84443; 84484; 85007; 85025 ×5; 85027; 87088; 93005 ×2; 94640 ×5; 94760 ×5; 94761; 96360; 97110; 97116 ×2; 97162; 99284; G0378; 96361; 96366; 96372; 96375; 96376

== ENCOUNTER 2022-12-11 11:09 | Inpatient (IN) | payer MEDICARE ==
[~2022-12-11] VITALS: Ht 183 cm; Wt 80.2 kg
[~2022-12-11 11:09] MED LIST changes: +AZIT250T12 PO; +DULO30CA3 PO; +Gabapentin PO; +HYDR2TAB30 PO; +SODI100047 MC
[2022-12-11] MEDS ORDERED: NS IV 1000 ML 1,000 ML IV STA ×2 (11:18→12:26)
[2022-12-11 11:24] LABS: BASOPHILS % (AUTO) 0 % (0-10); EOSINOPHILS % (AUTO) 0 % (0-10); HEMATOCRIT 38 % (40-54); HEMOGLOBIN 12.8 g/dL (13.3-17.7); LYMPHOCYTES # (AUTO) 0.2 10^3/uL (1.0-4.0); LYMPHOCYTES % (AUTO) 2 % (12-44); MEAN CORPUSCULAR HEMOGLOBIN 31 pg (25-34); MEAN CORPUSCULAR HGB CONC 34 g/dL (32-36); MEAN CORPUSCULAR VOLUME 91 fL (80-99); MEAN PLATELET VOLUME 9.9 fL (9.0-12.2); MONOCYTES # (AUTO) 0.6 10^3/uL (0.0-1.0); MONOCYTES % (AUTO) 6 % (0-12); NEUTROPHILS % (AUTO) 91 % (42-75); PLATELET COUNT 197 10^3/uL (130-400); WHITE BLOOD COUNT 9.9 10^3/uL (4.3-11.0)
--- NOTE | 2022-12-11 11:26 | ED General ---
General Stated Complaint: FALL Source of Information: Patient, EMS, Old Records (reviewed notes and discharge summery from Dr. Meza, [facility] Physician, for inpatient care on recent admission to [facility] for hyponatremia, recurrent falls, hypoxia, pneumonia. ) Exam Limitations: Other (Patient is somnolent and slow to answer questions) History of Present Illness Date Seen by Provider: Dec 11, 2022 Time Seen by Provider: 11:09 Initial Comments 72-year-old male presenting from home by EMS after his son found him on the floor the end of his bed today. Patient was just discharged from a 6-day admission to [facility] for hyponatremia, pneumonia, hypoxia, weakness, increased falls. His son had refused long-term admit for rehab for the patient. He lives alone and the son checks on him. After the son had brought him home yesterday he was alone overnight and then when the son got to the house to check on him late this morning he found him sitting on the floor with his back up against end of his bed. He was started on Gabapentin and Duloxetine during this admit at recommendations of Dr. Collins as patient has squamous cell carcinoma of the tongue and is getting chemotherapy for that and is dependent primarily on feeding tube for hydration and nutrition as he has poor po intake. Patient denies any pain on arrival to ED. He awakens to voice and opens his eyes to voice but otherwise if left alone he is sleeping. EMS did administer Narcan 1 mg by IV and felt it had helped wake him up some. Timing/Duration: 12 Hours Associated Systoms: No Chest Pain, No Cough, No Diaphoresis, No Fever/Chills, No Headaches; Loss of Appetite, Malaise; No Nausea/Vomiting, No Rash, No Seizure; Shortness of Air; No Syncope; Weakness Allergies and Home Medications Allergies Coded Allergies: No Known Drug Allergies (Unverified , 05/27/22) Patient Home Medication List Home Medication List Reviewed: Yes Azithromycin (Azithromycin) 250 Mg Tablet, 250 MG PO DAILY Prescribed by: LETTY MEZA on 12/10/22 115 Duloxetine HCl (Cymbalta) 30 Mg Capsule.dr 30 MG PO BID Prescribed by: LETTY MEZA on 12/10/22 1157 Hydromorphone HCl (Dilaudid) 2 Mg Tablet, 2 MG PO 1200, (Reported) Entered as Reported by: JOSE M MONTERO on 12/05/222115 Sodium Chloride (Sodium Chloride) 1,000 Mg Tablet.colby, 3,000 MG MC TID Prescribed by: LETTY MEZA on 12/10/221156 [Gabapentin] 300 MG CAP, 300 MG PO HS Prescribed by: LETTY MEZA on 12/10/221156 Review of Systems Review of Systems Constitutional: No fever; malaise, weakness EENTM: no symptoms reported Respiratory: see HPI Cardiovascular: No chest pain Gastrointestinal: No nausea, No vomiting Genitourinary: no symptoms reported Musculoskeletal: no symptoms reported Skin: other (multiple bruises in various stages of healing and superficial skin tears in various stages of healing.) Psychiatric/Neurological: See HPI Past Ccitqli-Hjrltc-Syquzt Hx Patient Social History Tobacco Use?: Yes Tobacco type used: Cigarettes Smoking Status: Current Everyday Smoker Substance use?: No Immunizations Up To Date First/Initial COVID19 Vaccinat: 03/07/2021 Second COVID19 Vaccination Raul: 03/28/2021 Third COVID19 Vaccination Date: 03/07/2021 Seasonal Allergies Seasonal Allergies: No Past Medical History Surgery/Hospitalization HX: Oral cancer; 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 Surgeries: Yes (BACK X2; BILAT SHOULDERS ROTATOR REPARI) Orthopedic, Tonsillectomy Respiratory: No Currently Using CPAP: No Currently Using BIPAP: No Cardiac: Yes High Cholesterol Neurological: No Reproductive Disorders: No Genitourinary: Yes Benign Prostatic Hyperpl Gastrointestinal: No Musculoskeletal: Yes Arthritis Endocrine: No HEENT: Yes (TONGUE CANCER SCC) Cancer: Yes (TONGUE) What Type of Treatment Did You: Surgical Intervention Psychosocial: Yes Sleep Difficulties Integumentary: No Blood Disorders: No Family Medical History No Pertinent Family Hx Physical Exam Vital Signs Vital Signs - First Documented 12/11/22 11:36 FiO2 96 Capillary Refill : Height, Weight, BMI Height: '" Weight: lbs. oz. kg; 25.59 BMI Method: General Appearance: Chronically ill HEENT: PERRL/EOMI; No Moist Mucous Membranes (dry mucous membranes) Neck: Full Range of Motion, Supple Respiratory: Chest Non Tender, No Accessory Muscle Use, No Respiratory Distress, Decreased Breath Sounds Cardiovascular: Regular Rate, Rhythm, Normal Peripheral Pulses, Extra Beats Gastrointestinal: Normal Bowel Sounds, No Pulsatile Mass, Non Tender, Soft, Other (Feeding tube in place LUQ) Rectal: Deferred Extremity: Normal Capillary Refill, Pedal Edema (trace to 1 + BLE) Neurologic/Psychiatric: No Oriented x3 (somnolent and oriented to self); operator automated process II-XII Norm as Tested Skin: Warm/Dry Focused Exam Lactate Level 12/11/22 11:20: Lactic Acid Level 1.58 Lactic Acid Level Laboratory Tests Test 12/11/22 11:20 Lactic Acid Level 1.58 MMOL/L (0.50-2.00) Progress/Results/Core Measures Suspected Sepsis SIRS Temperature: Pulse: Respiratory Rate: Laboratory Tests 12/11/22 11:20: White Blood Count 9.9 Blood Pressure / Mean: 12/11/22 11:20: Lactic Acid Level 1.58 Laboratory Tests 12/11/22 11:20: Creatinine 0.35L, Platelet Count 197, Total Bilirubin 0.9 Results/Orders Lab Results Laboratory Tests Test 12/11/22 11:20 12/11/22 12:00 12/11/22 13:37 Range/Units White Blood Count 9.9 4.3-11.0 10^3/uL Red Blood Count 4.14 L 4.30-5.52 10^6/uL Hemoglobin 12.8 L 13.3-17.7 g/dL Hematocrit 38 L 40-54 % Mean Corpuscular Volume 91 80-99 fL Mean Corpuscular Hemoglobin 31 25-34 pg Mean Corpuscular Hemoglobin Concent 34 32-36 g/dL Red Cell Distribution Width 12.6 10.0-14.5 % Platelet Count 197 130-400 10^3/uL Mean Platelet Volume 9.9 9.0-12.2 fL Immature Granulocyte % (Auto) 1 % Neutrophils (%) (Auto) 91 H 42-75 % Lymphocytes (%) (Auto) 2 L 12-44 % Monocytes (%) (Auto) 6 0-12 % Eosinophils (%) (Auto) 0 0-10 % Basophils (%) (Auto) 0 0-10 % Neutrophils # (Auto) 9.0 H 1.8-7.8 10^3/uL Lymphocytes # (Auto) 0.2 L 1.0-4.0 10^3/uL Monocytes # (Auto) 0.6 0.0-1.0 10^3/uL Eosinophils # (Auto) 0.0 0.0-0.3 10^3/uL Basophils # (Auto) 0.0 0.0-0.1 10^3/uL Immature Granulocyte # (Auto) 0.1 0.0-0.1 10^3/uL Neutrophils % (Manual) 92 % Lymphocytes % (Manual) 4 % Monocytes % (Manual) 4 % Sodium Level 123 *L 135-145 MMOL/L Potassium Level 2.9 L 3.6-5.0 MMOL/L Chloride Level 77 L 98-107 MMOL/L Carbon Dioxide Level 33 H 21-32 MMOL/L Anion Gap 13 5-14 MMOL/L Blood Urea Nitrogen 10 7-18 MG/DL Creatinine 0.35 L 0.60-1.30 MG/DL Estimat Glomerular Filtration Rate 120 BUN/Creatinine Ratio 29 Glucose Level 111 H 70-105 MG/DL Lactic Acid Level 1.58 0.50-2.00 MMOL/L Calcium Level 8.9 8.5-10.1 MG/DL Corrected Calcium 9.1 8.5-10.1 MG/DL Total Bilirubin 0.9 0.1-1.0 MG/DL Aspartate Amino Transf (AST/SGOT) 44 H 5-34 U/L Alanine Aminotransferase (ALT/SGPT) 31 0-55 U/L Alkaline Phosphatase 91 40-136 U/L C-Reactive Protein 3.23 H <0.50 MG/DL Total Protein 6.3 L 6.4-8.2 GM/DL Albumin 3.7 3.2-4.5 GM/DL Urine Color YELLOW Urine Clarity CLOUDY Urine pH 7.5 5-9 [address]rine Specific [place] 1.020 1.016-1.022 Urine Protein NEGATIVE NEGATIVE Urine Glucose (UA) NEGATIVE NEGATIVE Urine Ketones 2+ H NEGATIVE Urine Nitrite NEGATIVE NEGATIVE Urine Bilirubin NEGATIVE NEGATIVE Urine Urobilinogen 1.0 < = 1.0 MG/DL Urine Leukocyte Esterase NEGATIVE NEGATIVE Urine RBC (Auto) 3+ H NEGATIVE Urine RBC >100 H /HPF Urine WBC 10-25 H /HPF Urine Crystals NONE /LPF Urine Bacteria FEW H /HPF Urine Casts NONE /LPF Urine Mucus LARGE H /LPF Urine Culture Indicated YES Venous Blood pH 7.45 H 7.31-7.41 Venous Blood Partial Pressure CO2 57 H 40-52 MMHG Venous Blood HCO3 40 H 22-28 MMOL/L My Orders Orders - ENYART,LISA E MD Cbc With Automated Diff (12/11/22 11:18) Comprehensive Metabolic Panel (12/11/22 11:18) Blood Culture (12/11/22 11:18) Ua Culture If Indicated (12/11/22 11:18) Chest 1 View Ap/Pa Only (12/11/22 11:18) Ed Iv/Invasive Line Start (12/11/22 11:18) Crp Fs (12/11/22 11:18) Lactic Acid Analyzer (12/11/22 11:18) Ns Iv 1000 Ml (Sodium Chloride 0.9%) (12/11/22 11:18) Ct Head Wo (12/11/22 11:18) O2 (12/11/22 11:18) Manual Differential (12/11/22 11:20) Urine Culture (12/11/22 12:00) Ct Abdomen/Pelvis Wo (12/11/22 12:25) Ns Iv 1000 Ml (Sodium Chloride 0.9%) (12/11/22 12:26) Ed Admission (Communication) (12/11/22 12:54) Code/Resuscitation (12/11/22 13:22) Venous Blood Gas (12/11/22 13:37) Venous Blood Gas (12/11/22 13:41) Vital Signs/I&O 12/11/22 12/11/22 12/11/22 12/11/22 11:12 11:12 11:36 14:40 Temp 36.3 36.3 Pulse 85 89 Resp 23 22 B/P (MAP) 154/78 (103) 160/65 Pulse Ox 96 96 96 O2 Delivery Nasal Cannula Nasal Cannula Nasal Cannula Nasal Cannula O2 Flow Rate 3.00 3.00 3.00 3.00 3.00 FiO2 96 Capillary Refill : Progress Note #1: Progress Note Possible diagnosis of sepsis, worsening pneumonia, intracranial hemorrhage, worsening hyponatremia, renal failure, hepatic failure, worsening hypoxia, accidental medication overdose. Peripheral IV was started by EMS in route to the ED. Send labs to check complete blood count, comprehensive metabolic profile, blood cultures, lactic acid, CRP, urinalysis. Obtain a chest x-ray to evaluate for acute changes with his lungs since discharge yesterday. CT scan of the head to evaluate for acute changes or bleeding with him being more somnolent. Give NS 1 L IVF bolus for hydration given his recent hyponatremia and recurrent falls. Supplemental O2 at 3 Lpm continued as he is hypoxic at 86 to 87% on room air. Progress Note #2: Time: 11:50 Progress Note Complete blood count showed white blood cell count at 9.9. His hemoglobin was 12.8 which was almost a gram from when he was discharged so he may be hemoconcentrated. His comprehensive metabolic panel showed a sodium of 123 whereas he was 129 yesterday. His potassium is at 2.9. His CO2 is slightly elevated to 33 and his chloride is 77. His BUN was normal at 10 and creatinine of 0.35. His lactic acid was negative at 1.58. His CRP was elevated up to 3.23 to go along with inflammatory process or infection. On my personal interpretation and review of his 1 view CXR he had continued raised hemidiaphragm on left and appeared to have some fluid in his fissure on the right lung. I did not see any acute intracranial hemorrhage or mass on CT head without contrast, based on my personal interpretation. I will hold off on additional potassium here in the ED but he likely will need to continue with potassium supplementation either as inpatient or at a SNF. Radiologist Dr. Chavez, did call and speak with me about CXR showing possible free air under right hemidiaphragm, but more likely artifact. Will add on CT scan of abdomen/pelvis to check for perforation or free air and also further look into hematuria found on urinalysis today. UA showed specific gravity of 1.020. He did have 2+ ketones with 3+ blood large mucus and 10-25 white blood cells with a few bacteria. A culture was reflexed off of this result. As his sodium had dropped 6 points since yesterday will continue with normal s roderick at 100 mils an hour after the initial 1 L bolus has finished infusing. Progress Note #3: Time: 12:45 Progress Note Discussed with Dr. Elise, on-call hospitalist for [facility], about repeat admission of the patient for his change in sodium as well as somnolence. Reviewed the lab findings with sodium dropping to 123 from 129 yesterday prior to admission as well as he had not been taking his salt tabs after discharge because they were too hard to swallow and the pharmacist said told the son not to put it through the tube because it would get stuck. Son realizes that the patient needs more support than what he can get at home so he will need to go to a rehab or long-term facility upon medical discharge. She accepted him for medical floor admit as inpatient and will place queued orders but did request we obtain an ABG to see if he is retaining CO2 and might need BiPap as he is somnolent and continues to smoke cigarettes even with his oxygen that was started during admit this past week. I did not appreciate findings of free air on the CT scan of abdomen/pelvis without contrast. He had some intrarenal kidney stones in the left kidney but I did not appreciate any in the ureter or bladder. 1311 I have reviewed the radiologist report on the CT abdomen and pelvis without contrast and it showed no free air. He did have some kidney stones. He also had constipation with increased stool burden. Progress Note #4: Progress Note After multiple attempts to obtain ABG were unsuccessful a Venous Blood gas was obtained and showed pH 7.45, pCO2 57, pO2 47 on 3 Lpm by n.c.. The pCO2 is slightly elevated but not high enough that I would start him on BiPap at this point. The VBG results were relayed to Dr. Elise as well. Diagnostic Imaging Diagonstic Imaging: Xray Plain Films/CT/US/NM/MRI: chest Comments [facility], [place] NAME: CHIARA REYNA [employer] REC#: [id number] PT STATUS: REG ER : 1950 PHYSICIAN: LISA HERNANDEZ MD ADMIT DATE: 12/11/22/ER FS Draft Date of Exam:12/11/22 CHEST 1 VIEW AP/PA ONLY INDICATION: Fall with chest pain. COMPARISON: None. DISCUSSION: A single portable upright view of the chest was obtained. Elevated left hemidiaphragm. Infiltrates within the left lung base could be seen with atelectasis or pneumonia. The heart borders are mostly obscured. Right-sided port is present. Lucency along the right lung base may represent lung superimposed over the diaphragm with the major fissure present; however, underlying pneumoperitoneum cannot be excluded. This is felt to be less likely as the left diaphragm is much higher than the right, typically air will go to the nondependent portion; however, a small amount of free air cannot be excluded. IMPRESSION: 1. Left lung base consolidation. 2. Questionable pneumoperitoneum under the right hemidiaphragm. 3. Findings were called to Aki Hernandez in the Emergency Department at the time of exam by Dr. Chavez. Dictated on workstation # [id number] Dict: 12/11/22 1147 Trans: 12/11/22 1155 [id number] Interpreted by: ROLANDO CHAVEZ MD Electronically signed by: Reviewed: Reviewed by Me, Discussed w/Radiologist (Radiologist, Dr. Chavze, called and spoke with me about the CXR finding for possible free air under right hemidiaphragm but more likely artifact. ) Diagonstic Imaging: CT Plain Films/CT/US/NM/MRI: head Comments NAME: CHIARA ERYNA [employer] REC#: [id number] PT STATUS: REG ER : 1950 PHYSICIAN: LISA HERNANDEZ MD ADMIT DATE: 12/11/22/ER FS Draft Date of Exam:12/11/22 CT HEAD WO PROCEDURE: CT head without contrast. TECHNIQUE: Multiple contiguous axial images were obtained through the brain without the use of intravenous contrast. Auto Exposure Controls were utilized during the CT exam to meet ALARA standards for radiation dose reduction. INDICATION: Altered mental status and frequent falls. COMPARISON: 12/05/2022. FINDINGS: There are no CT findings of an acute intracranial abnormality. There is no evidence of intracranial hemorrhage. There is no intracranial mass effect or shift. There is no hydrocephalus. There is no extra-axial collection. There is age-related volume loss. There are no findings of territorial loss of palomo-white differentiation or findings of vasogenic edema. The mastoid air cells are clear. The paranasal sinuses are clear. The orbital contents appear normal. While only partially included within the [id number], there appears to be an abnormal left cervical neck mass effacing portions of the left parapharyngeal fat and surrounding the left stylohyoid ligament. This is suspect for neoplasm. IMPRESSION: 1. No CT evidence of an acute intracranial abnormality. 2. Partially visualized upper left cervical neck mass, suspect for neoplasm. This could be characterized with neck CT. Dictated on workstation # [id number] Dict: 12/11/22 1142 Trans: 12/11/22 1150 C[address] [id number] Interpreted by: ALIRIO MALHOTRA MD Electronically signed by: Reviewed: Reviewed by Me Diagonstic Imaging: CT Plain Films/CT/US/NM/MRI: abdomen, pelvis Comments [facility], [place] NAME: CHIARA REYNA REC#: [id number] PT STATUS: REG ER : 1950 PHYSICIAN: LISA HERNANDEZ MD ADMIT DATE: 12/11/22/ER FS Draft Date of Exam:12/11/22 CT ABDOMEN/PELVIS WO PROCEDURE: CT abdomen and pelvis without contrast. TECHNIQUE: Multiple contiguous axial images were obtained through the abdomen and pelvis without the use of intravenous contrast. Auto Exposure Controls were utilized during the CT exam to meet ALARA standards for radiation dose reduction. INDICATION: Followup possible free air under the right hemidiaphragm on chest x-ray. COMPARISON: Chest x-ray of this same day. DISCUSSION: The exam is degraded by motion. There is no free air within the abdomen identified. Findings on the plain film likely represent artifact and eventration of the right hemidiaphragm. Elevated left hemidiaphragm. Normal heart size. No pleural or pericardial fluid. The liver, gallbladder, pancreas, stomach, spleen, and adrenal glands are unremarkable. Nonobstructing 3 mm left renal calculus. No hydronephrosis. Ectasia of the abdominal aorta measuring 3.3 x 3.3 cm. Urinary bladder and prostate are unremarkable. Constipation is noted. No ascites or abnormal bowel loops. No acute osseous abnormality. Gastrostomy tube present. IMPRESSION: 1. No free air identified. 2. Constipation. 3. Nonobstructing left renal calculus. 4. Ectasia of the abdominal aorta. Dictated on workstation # [id number] Dict: 12/11/22 1244 Trans: 12/11/22 [address] C[address]BELL [id number] Interpreted by: ROLANDO CHAVEZ MD Electronically signed by: Reviewed: Reviewed by Me Departure Communication (Admissions) Time/Spoke to Admitting Phy: 13:[address] Elise, on-call hospitalist for [facility], about repeat admission of the patient for his change in sodium as well as somnolence. Reviewed the lab findings with sodium dropping to 123 from 129 yesterday prior to admission as well as he had not been taking his salt tabs after discharge because they were too hard to swallow and the pharmacist said told the son not to put it through the tube because it would get stuck. Son realizes that the patient needs more support than what he can get at home so he will need to go to a rehab or long-term facility upon medical discharge. She accepted him for medical floor admit as inpatient and will place queued orders but did request we obtain an ABG to see if he is retaining CO2 and might need BiPap as he is somnolent and continues to smoke cigarettes even with his oxygen that was started during admit this past week. Impression Primary Impression: Hyponatremia Additional Impressions: Hypokalemia Frequent falls Hypoxia Hematuria Qualified Codes: R31.29 - Other microscopic hematuria Left nephrolithiasis Pneumonia of left lower lobe due to infectious organism Disposition: 30 STILL A PATIENT Condition: Stable Admissions Decision to Admit Reason: Admit from ER (General) Decision to Admit/Date: Dec 11, 2022 Time/Decision to Admit Time: 13:00 Departure-Patient Inst. Referrals: KO LEUNG MD (PCP/Family) Primary Care Physician LISA HERNANDEZ MD Dec 11, 2022 11:26
[2022-12-11 11:45] LABS: ALBUMIN 3.7 GM/DL (3.2-4.5); BILIRUBIN,TOTAL 0.9 MG/DL (0.1-1.0); CALCIUM 8.9 MG/DL (8.5-10.1); CREATININE SERUM 0.35 MG/DL (0.60-1.30); POTASSIUM 2.9 MMOL/L (3.6-5.0); TOTAL PROTEIN 6.3 GM/DL (6.4-8.2)
--- NOTE | 2022-12-11 11:51 | Diagnostic Imaging Report ---
PROCEDURE: CT head without contrast. TECHNIQUE: Multiple contiguous axial images were obtained through the brain without the use of intravenous contrast. Auto Exposure Controls were utilized during the CT exam to meet ALARA standards for radiation dose reduction. INDICATION: Altered mental status and frequent falls. COMPARISON: 12/05/2022. FINDINGS: There are no CT findings of an acute intracranial abnormality. There is no evidence of intracranial hemorrhage. There is no intracranial mass effect or shift. There is no hydrocephalus. There is no extra-axial collection. There is age-related volume loss. There are no findings of territorial loss of palomo-white differentiation or findings of vasogenic edema. The mastoid air cells are clear. The paranasal sinuses are clear. The orbital contents appear normal. While only partially included within the [id number], there appears to be an abnormal left cervical neck mass effacing portions of the left parapharyngeal fat and surrounding the left stylohyoid ligament. This is suspect for neoplasm. IMPRESSION: 1. No CT evidence of an acute intracranial abnormality. 2. Partially visualized upper left cervical neck mass, suspect for neoplasm. This could be characterized with neck CT. Dictated by: Dictated on workstation # [id number]
[2022-12-11 11:53] LABS: LYMPHOCYTES % (MANUAL) 4 %; MONOCYTES % (MANUAL) 4 %; NEUTROPHILS % (MANUAL) 92 %
--- NOTE | 2022-12-11 11:55 | Diagnostic Imaging Report ---
INDICATION: Fall with chest pain. COMPARISON: None. DISCUSSION: A single portable upright view of the chest was obtained. Elevated left hemidiaphragm. Infiltrates within the left lung base could be seen with atelectasis or pneumonia. The heart borders are mostly obscured. Right-sided port is present. Lucency along the right lung base may represent lung superimposed over the diaphragm with the major fissure present; however, underlying pneumoperitoneum cannot be excluded. This is felt to be less likely as the left diaphragm is much higher than the right, typically air will go to the nondependent portion; however, a small amount of free air cannot be excluded. IMPRESSION: 1. Left lung base consolidation. 2. Questionable pneumoperitoneum under the right hemidiaphragm. 3. Findings were called to Aki Ceballos in the Emergency Department at the time of exam by Dr. Chavez. Dictated by: Dictated on workstation # [id number]
[2022-12-11 11:59] LABS: BILIRUBIN,URINE NEGATIVE (NEGATIVE); COLOR,URINE YELLOW; GLUCOSE, URINE (UA) NEGATIVE (NEGATIVE); KETONES,URINE 2+ (NEGATIVE); LEUKOCYTE ESTERASE ,URINE NEGATIVE (NEGATIVE); NITRITE,URINE NEGATIVE (NEGATIVE); PH,URINE 7.5 (5-9); PROTEIN,URINE NEGATIVE (NEGATIVE)
[2022-12-11 12:03] LABS: CLARITY,URINE CLOUDY; RBC,URINE >100 /HPF
[2022-12-11 12:04] LABS: BACTERIA,URINE FEW /HPF
--- NOTE | 2022-12-11 13:01 | Diagnostic Imaging Report ---
PROCEDURE: CT abdomen and pelvis without contrast. TECHNIQUE: Multiple contiguous axial images were obtained through the abdomen and pelvis without the use of intravenous contrast. Auto Exposure Controls were utilized during the CT exam to meet ALARA standards for radiation dose reduction. INDICATION: Followup possible free air under the right hemidiaphragm on chest x-ray. COMPARISON: Chest x-ray of this same day. DISCUSSION: The exam is degraded by motion. There is no free air within the abdomen identified. Findings on the plain film likely represent artifact and eventration of the right hemidiaphragm. Elevated left hemidiaphragm. Normal heart size. No pleural or pericardial fluid. The liver, gallbladder, pancreas, stomach, spleen, and adrenal glands are unremarkable. Nonobstructing 3 mm left renal calculus. No hydronephrosis. Ectasia of the abdominal aorta measuring 3.3 x 3.3 cm. Urinary bladder and prostate are unremarkable. Constipation is noted. No ascites or abnormal bowel loops. No acute osseous abnormality. Gastrostomy tube present. IMPRESSION: 1. No free air identified. 2. Constipation. 3. Nonobstructing left renal calculus. 4. Ectasia of the abdominal aorta. Dictated by: Dictated on workstation # [id number]
[2022-12-11 16:00] VITALS: BP 155/80
[2022-12-11] MEDS ORDERED: cloNIDine 0.1 MG (CATAPRES) TAB PO PRN (16:00)
[2022-12-11] MEDS ORDERED: BISACODYL 10 MG SUPP (DULCOLAX) PR PRN (16:00)
[2022-12-11] MEDS ORDERED: ANTACID SUSP 30 ML UDC (MYLANTA) PO PRN (16:00)
[2022-12-11] MEDS ORDERED: MELATONIN 3 MG TABLET PO PRN (16:00)
[2022-12-11] MEDS ORDERED: diphenhydrAMINE 25 MG TAB (BENADRYL) PO PRN (16:00)
[2022-12-11] MEDS ORDERED: ONDANSETRON 4 MG (ZOFRAN) ORAL DISSOLVE TAB PO PRN (16:00)
[2022-12-11] MEDS ORDERED: ONDANSETRON 4 MG/2 ML (SDV) Z0FRAN IV PRN (16:00)
[2022-12-11] MEDS ORDERED: HYDROmorphone 2 MG/ML VIAL (DILAUDID) IV PRN (16:00)
[2022-12-11] MEDS ORDERED: ACETAMINOPHEN 325 MG TABLET PO PRN (16:00)
[2022-12-11] MEDS ORDERED: diphenhydrAMINE 50 MG/ML INJ (BENADRYL) IVP PRN (16:00)
[2022-12-11] MEDS ORDERED: ENOXAPARIN 40 MG/0.4 ML (LOVENOX) SYR SC SCH (16:00)
[2022-12-11] MEDS ORDERED: polyethylene glycoL POWDER 17 GM (MIRALAX) PACK PO PRN (16:00)
[2022-12-11] MEDS ORDERED: ALPRAZolam 0.5 MG (XANAX) TAB PO PRN (16:00)
[2022-12-11 16:29] VITALS: BP 160/65
[2022-12-11] MEDS ORDERED: RT-ALBUTEROL/IPRATROPIUM 3 ML (DUONEB) VIAL INH PRN (16:45)
[2022-12-11] MEDS: NS IV 1000 ML 1,000 ML IV SCH (18:17)
[2022-12-11] MEDS: RT-ALBUTEROL/IPRATROPIUM 3 ML (DUONEB) VIAL INH SCH ×2 (19:03→22:07)
[2022-12-11 20:00] VITALS: BP 137/72
[2022-12-11] MEDS: DOCUSATE SODIUM 100 MG (COLACE) CAP PO SCH (21:39)
[2022-12-12] VITALS: BP 116/75
[2022-12-12] MEDS: RT-ALBUTEROL/IPRATROPIUM 3 ML (DUONEB) VIAL INH SCH ×3 (02:38→11:04)
[2022-12-12 04:00] VITALS: BP 121/64
[2022-12-12 05:48] LABS: BASOPHILS % (AUTO) 0 % (0-10); EOSINOPHILS % (AUTO) 0 % (0-10); HEMATOCRIT 35 % (40-54); HEMOGLOBIN 12.4 g/dL (13.3-17.7); LYMPHOCYTES # (AUTO) 0.3 10^3/uL (1.0-4.0); LYMPHOCYTES % (AUTO) 3 % (12-44); MEAN CORPUSCULAR HEMOGLOBIN 31 pg (25-34); MEAN CORPUSCULAR HGB CONC 35 g/dL (32-36); MEAN CORPUSCULAR VOLUME 89 fL (80-99); MEAN PLATELET VOLUME 10.2 fL (9.0-12.2); MONOCYTES # (AUTO) 0.8 10^3/uL (0.0-1.0); MONOCYTES % (AUTO) 9 % (0-12); NEUTROPHILS # (AUTO) 7.4 10^3/uL (1.8-7.8); NEUTROPHILS % (AUTO) 87 % (42-75); PLATELET COUNT 182 10^3/uL (130-400); WHITE BLOOD COUNT 8.6 10^3/uL (4.3-11.0)
[2022-12-12 06:06] LABS: ALBUMIN 3.3 GM/DL (3.2-4.5); BILIRUBIN,TOTAL 0.7 MG/DL (0.1-1.0); CALCIUM 8.2 MG/DL (8.5-10.1); CREATININE SERUM 0.47 MG/DL (0.60-1.30); POTASSIUM 2.7 MMOL/L (3.6-5.0); TOTAL PROTEIN 5.8 GM/DL (6.4-8.2)
[2022-12-12] MEDS: NS IV 1000 ML 1,000 ML IV SCH (06:07)
--- NOTE | 2022-12-12 06:10 | History & Physical-Hospitalist ---
History of Present Illness HPI/Chief Complaint CC: Weakness with hyponatremia HPI: This is a 72yoWM clinic patient of [facility] and Dr Rollins On[facility] who has a h/o throat cancer s/p chemo and radiation who was just DC Tuesday by Dr Deleon who returned to the [facility] ER after found down at home with O2 off and O2 sat 83% so he was brought to the ER and found to have hyponatremia 122 and severe weakness. Patient was admitted but required biPAP early this morning and has tolerated it well. Sodium level was not much improved today and given the fact of worsened status and the fact he is continued to decline the family and I had a long conversation about goals of care and patient was made DNR and comfort care. Source: family Exam Limitations: clinical condition Date Seen 12/12/22 Time Seen by a Provider: 11:00 Attending Physician Navid Ryan MD PCP Admitting Physician: Dyan Tate DO Attending Physician: Dyan Tate DO Referring Physician Date of Admission Dec 11, 2022 at 15:20 Home Medications & Allergies Home Medications Reviewed patient Home Medication Reconciliation performed by pharmacy medication reconciliations water restoration technician and/or nursing. Patients Allergies have been reviewed. Allergies Allergies Coded Allergies No Known Drug Allergies (Emfoxebzkv05/13/22) Past [id number] Hx Patient Social History Marrital Status: single Employed/Student: retired Tobacco Use?: Yes Tobacco type used: Cigarettes Smoking Status: Current Everyday Smoker Use of E-Cig and/or Vaping dev: No Substance use?: No Alcohol Use?: No Pt feels they are or have been: No Immunizations Up To Date First/Initial COVID19 Vaccinat: 03/07/2021 Second COVID19 Vaccination Raul: 03/28/2021 Seasonal Allergies Seasonal Allergies: No Current Status Advance Directives: No Communicates: Verbally Primary Language: [place] Preferred Spoken Language: [place] Is interpretation needed?: No Implanted or Applied Medical D: None Past Medical History Surgeries: Orthopedic, Tonsillectomy Currently Using CPAP: No Currently Using BIPAP: No High Cholesterol Benign Prostatic Hyperpl Arthritis Oral What Type of Treatment Did You: Chemotherapy, Surgical Intervention Sleep Difficulties Blood Disorders: No PMHx: Tongue cancer SurgHx: Bilateral shoulder surgeries 3 discs in back Family Medical History No Pertinent Family Hx Review of Systems Constitutional: see HPI Physical Exam Physical Exam Vital Signs Vital Signs - First Documented 12/11/22 11:36 FiO2 96 Capillary Refill : Less Than 3 Seconds Height, Weight, BMI Height: '" Weight: lbs. oz. kg; 23.94 BMI Method: General Appearance: No Apparent Distress, Chronically ill, Thin Respiratory: No Accessory Muscle Use, No Respiratory Distress, Decreased Breath Sounds Cardiovascular: Regular Rate, Rhythm Neurologic/Psychiatric: Other (semi-comatose) Results Results/Procedures Labs Laboratory Tests 12/11/22 11:20 12/12/22 04:57 Patient resulted labs reviewed. Assessment/Plan Admission Diagnosis Assessment: AMS Hyponatremia Throat cancer PEG tube in place Acute on chronic respiratory failure requiring biPAP due to hypercapnia Hypokalemia Plan: End of life care DC biPAP Admission Status: Inpatient Order (span 2 midnights) Reason for Inpatient Admission: resp failure DYAN TATE DO Dec 12, 2022 06:10
[2022-12-12 06:51] LABS: ABG BASE EXCESS 16.2 MMOL/L (-2.5-2.5); ABG OXYGEN SATURATION 100 % (94-100); ABG PCO2 65 MMHG (35-45); ABG PH 7.42 (7.37-7.43); ABG PO2 176 MMHG (79-93)
[2022-12-12 07:01] LABS: ABG TCO2 43.8 MMOL/L (21.0-31.0)
[2022-12-12 07:02] LABS: ALLENS TEST Positive; PATIENT TEMP 36.8; VENTILATOR NO
[2022-12-12 07:59] VITALS: BP 150/70
--- NOTE | 2022-12-12 07:59 | Diagnostic Imaging Report ---
EXAM: CHEST 1 VIEW, AP/PA ONLY. INDICATION: Hypoxia. COMPARISON: 12/11/2022. FINDINGS: Normal heart size and central pulmonary vascularity. Elevation of the left hemidiaphragm with consolidation in the left lung base. Right IJ tunneled port CVC tip mid SVC. No pneumothorax. No acute osseous findings. IMPRESSION: Stable chest including elevation of the left hemidiaphragm and consolidation in the left lung base. Dictated by: Dictated on workstation # [id number]
[2022-12-12] MEDS: DOCUSATE SODIUM 100 MG (COLACE) CAP PO SCH (08:46)
[2022-12-12] MEDS: POTASSIUM CL 10MEQ/50ML IVPB 50 ML IV SCH ×2 (10:18→10:21)
[2022-12-12] MEDS: MAGNESIUM 1 GM/100 ML IVPB 100 ML IV SCH ×2 (10:18→10:27)
[2022-12-12 11:36] VITALS: BP 140/65
[2022-12-12] MEDS ORDERED: LORazepam ORAL CONCENTRATE 2 MG/ML 30 ML (ATIVAN) PO PRN (12:30)
[2022-12-12] MEDS ORDERED: morphine INJ 10 MG/ML 1ML (SYR OR VIAL) IVP PRN (12:30)
[2022-12-12] MEDS: LORazepam INJ 2 MG/ML (ATIVAN) VIAL IVP PRN ×2 (16:21→20:22)
[2022-12-12] MEDS ORDERED: morphine INJ 4 MG/ML 1 ML (VIAL/SYRINGE) IVP PRN (16:30)
[2022-12-12] MEDS ORDERED: LIDOCAINE UROJET 2% GEL 10 ML PKG TOP ONE (19:00)
--- NOTE | 2022-12-13 05:36 | Discharge Summary ---
Discharge Summary Hospital Course Was the Problem List Reviewed?: Yes Problems/Dx: (1) Hypoxia Status: Acute (2) Recurrent falls Status: Acute (3) Hyponatremia Status: Acute (4) Hypokalemia Status: Acute Hospital Course Date of Admission: Dec 11, 2022 at 15:20 Admission Diagnosis : Family Physician/Provider: Navid Ryan MD Date of Discharge: 12/13/22 Discharge Diagnosis: [ ] Hospital Course: Short course after he was admitted to 4th floor for hyponatremia and weakness and fall 12 hours after he was DC from hospital. Severity of hyponatremia and hypokalemia required close monitoring but then he declined rapidly requiring biPAP prompting talk with his family and all in agreement due to the severe debility and suffering he was placed on comfort care and Labs and Pending Lab Test: Laboratory Tests 12/12/22 06:45: Blood Gas Puncture Site R radial, Blood Gas Patient Temperature 36.8, Arterial Blood pH 7.42, Arterial Blood Partial Pressure CO2 65H, Arterial Blood Partial Pressure O2 176H, Arterial Blood HCO3 42*H, Arterial Blood Total CO2 43.8*H, Arterial Blood Oxygen Saturation 100, Arterial Blood Base Excess 16.2H, Gilbert Test Positive, Blood Gas Ventilator Setting NO, Blood Gas Inspired Oxygen 55% Microbiology 12/11/22 Blood Culture - Preliminary, Resulted No growth Home Meds Active Sodium Chloride 1,000 Mg Tablet.colby 3,000 Mg MC TID Cymbalta (Duloxetine HCl) 30 Mg Capsule.dr 30 Mg PO BID [Gabapentin] 300 MG Cap 300 Mg PO HS Azithromycin 250 Mg Tablet 250 Mg PO DAILY Reported Dilaudid (Hydromorphone HCl) 2 Mg Tablet 2 Mg PO 1200 Assessment/Pt Instructions Discharge Planning: <30 minutes discharge planning Discharge Physical Examination Vital Signs Vital Signs Date Time Temp Pulse Resp B/P (MAP) Pulse Ox O2 Delivery O2 Flow Rate FiO2 12/12/22 13:03 69 12/12/22 11:36 35.3 20 140/65 (90) 100 NIV Bilevel 40.00 12/12/22 07:50 96 Allergies: Coded Allergies: No Known Drug Allergies (Unverified , 12/12/22) Discharge Summary Date of Admission Dec 11, 2022 at 15:20 Date of Discharge December 13, 2022 at 01:10 Admission Diagnosis Assessment: AMS Hyponatremia Throat cancer PEG tube in place Acute on chronic respiratory failure requiring biPAP due to hypercapnia Hypokalemia Plan: End of life care DC biPAP ERICK TATE DO December 13, 2022 05:36
== END 2022-12-12 23:40 | disposition expired | DRG 640 ==
LOC: EDUNIT# 11:09 → ER FS 11:11 → 4TH 15:20
PROVIDERS: ADMIT Internal Medicine; ATTEND Internal Medicine
PROC: 5A09357 Assistance with Respiratory Ventilation, Less than 24 Consecutive Hours, Continuous Positive Airway Pressure (ICD-10-PCS; principal; 2022-12-12)
DX: E87.1 Hypo-osmolality and hyponatremia (principal); J18.9 Pneumonia, unspecified organism; J96.22 Acute and chronic respiratory failure with hypercapnia; Z92.21 Personal history of antineoplastic chemotherapy; Z92.3 Personal history of irradiation; Z66 Do not resuscitate; Z51.5 Encounter for palliative care; F17.210 Nicotine dependence, cigarettes, uncomplicated; E78.00 Pure hypercholesterolemia, unspecified; N40.0 Benign prostatic hyperplasia without lower urinary tract symptoms; M19.90 Unspecified osteoarthritis, unspecified site; Z85.810 Personal history of malignant neoplasm of tongue; E87.6 Hypokalemia; R31.29 Other microscopic hematuria; N20.0 Calculus of kidney
CPT/HCPCS: 36415; 70450; 71045; 74176; 80053; 81000; 82805; 83605; 83735; 85007; 85025; 85027; 86141; 87040; 87088; 94640; 94660; 96360; 96361